=== PATIENT | female | born 1960 | race Caucasian/White ===

== ENCOUNTER → 2017-05-08 09:08 | Outpatient (CLI) | payer MEDICAID, SELFPAY ==
[2017-05-08 10:48] LABS: Anion Gap 7 (5-15); BUN 12 mg/dL (7-18); BUN/Creat Ratio 12.8 RATIO (10-20); Calcium,Total 8.7 mg/dL (8.5-10.1); Chloride 106 mmol/L (98-107); Cholesterol 151 mg/dL (200); Creatinine, Serum 0.94 mg/dL (0.55-1.02); EST Glomerular Filtration Rate 66 mL/min (>60); Est Glom Filt Rate - Afr Amer 80 mL/min (>60); Glucose 89 mg/dL (74-106); High Density Lipoprotein 41 mg/dL; Potassium 3.6 mmol/L (3.5-5.1); Sodium Level 141 mmol/L (136-145); Triglycerides 74 mg/dL; Very Low Density Lipoprotein 15 mg/dL (5-40)
[2017-05-08 11:22] LABS: Vitamin D,25 Hydroxy 22.7 ng/mL (29.95-100.01)
== END ==
PROVIDERS: Family Provider Family Medicine; PCP Family Medicine; Visit Provider Family Medicine
DX: Z00.00 Encounter for general adult medical examination without abnormal findings (principal); I10 Essential (primary) hypertension; E78.5 Hyperlipidemia, unspecified
CPT/HCPCS: 36415; 80048; 80061; 82306

== ENCOUNTER → 2017-05-08 11:53 | Outpatient (CLI) | payer MEDICAID, SELFPAY ==
--- NOTE | 2017-05-08 | LES_PTH ---
PATIENT: COLIN TRUJILLO LOC: [facility] U#:[id number] AGE/SX: 64/F ROOM: RE05/08/[address]: Dr. Shant Suarez MD : 1960 BED: DIS: SPEC #: [id number] RECD: 05/08/17 14:35 STATUS: DHARA JENNIE #: [id number] VERONICA: 05/08/17 00:[address]: Shant Suarez DEPT: SURGICAL PATHOLOGY RECD BY: Ruslan Driscoll Tissues: Skin of arm Procedures: Surgery Specimen Level IV HEADER OPERATION: 4 mm punch biopsy PRE-OP DIAGNOSIS: Left arm neoplasm TISSUE SUBMITTED: 4 mm left arm punch biopsy MICROSCOPIC DIAGNOSIS Left arm lesion, punch biopsy: Solar elastosis. Dermatofibroma Negative for malignancy. SJ:gabriela 05/11/17 COMMENT Case has been reviewed in consultation with Dr. Zuniga who concurs with the above diagnosis. IDC:AM MICROSCOPIC DESCRIPTION Slides are reviewed. GROSS DESCRIPTION Received is one container labeled with the patient's name and not further designated. The specimen consists of a light messina punch biopsy of skin measuring 0.3 x 0.2 x 0.2 cm. The specimen is totally submitted in one cassette. / AM:gabriela 05/08/17 TC:5 CPT: 46641
== END ==
PROVIDERS: Family Provider Family Medicine; PCP Family Medicine; Visit Provider Family Medicine
DX: Z00.00 Encounter for general adult medical examination without abnormal findings (principal); I10 Essential (primary) hypertension; E78.5 Hyperlipidemia, unspecified; D49.89 Neoplasm of unspecified behavior of other specified sites
CPT/HCPCS: 36415; 80048; 80061; 82306; 88305

== ENCOUNTER → 2017-10-26 09:12 | Outpatient (CLI) | payer MEDICAID, SELFPAY ==
[2017-10-26 10:41] LABS: Anion Gap 4 (5-15); BUN 13 mg/dL (7-18); BUN/Creat Ratio 13.1 RATIO (10-20); Calcium,Total 9.1 mg/dL (8.5-10.1); Chloride 109 mmol/L (98-107); Creatinine, Serum 0.99 mg/dL (0.55-1.02); EST Glomerular Filtration Rate 62 mL/min (>60); Est Glom Filt Rate - Afr Amer 75 mL/min (>60); Glucose 104 mg/dL (74-106); Potassium 4.1 mmol/L (3.5-5.1); Sodium Level 141 mmol/L (136-145)
== END ==
PROVIDERS: Family Provider Family Medicine; PCP Family Medicine; Visit Provider Family Medicine
DX: R60.9 Edema, unspecified (principal)
CPT/HCPCS: 36415; 80048

== ENCOUNTER → 2018-02-04 10:01 | Outpatient (CLI) | payer MEDICAID, SELFPAY ==
[2017-12-14 09:20] VITALS: BMI 34.7
[2018-02-04 12:29] LABS: Anion Gap 7 (5-15); BUN 14 mg/dL (7-18); BUN/Creat Ratio 15.1 RATIO (10-20); Calcium,Total 8.8 mg/dL (8.5-10.1); Chloride 108 mmol/L (98-107); Cholesterol 163 mg/dL (200); Creatinine, Serum 0.93 mg/dL (0.55-1.02); EST Glomerular Filtration Rate 67 mL/min (>60); Est Glom Filt Rate - Afr Amer 80 mL/min (>60); Glucose 98 mg/dL (74-106); High Density Lipoprotein 40 mg/dL; Potassium 3.9 mmol/L (3.5-5.1); Sodium Level 142 mmol/L (136-145); Triglycerides 95 mg/dL; Very Low Density Lipoprotein 19 mg/dL (5-40)
[2018-02-04 12:30] LABS: Vitamin D,25 Hydroxy 36.5 ng/mL (29.95-100.01)
== END ==
PROVIDERS: Family Provider Family Medicine; PCP Family Medicine; Visit Provider Family Medicine
DX: I10 Essential (primary) hypertension (principal); E55.9 Vitamin D deficiency, unspecified
CPT/HCPCS: 36415; 80048; 80061; 82306

== ENCOUNTER → 2018-06-30 | Outpatient (CLI) | payer MEDICAID, SELFPAY ==
[2018-06-09 07:57] VITALS: BMI 34.2
--- NOTE | 2018-06-30 08:09 | BI_ITS ---
MAMMOGRAPHY - BILATERAL SCREENING REASON FOR EXAM: Female, 57 years old. Routine annual screening examination. PERTINENT HISTORY: Non-contributory. TECHNIQUE: Digital bilateral breast allie (3D mammographic acquisition) in the CC and MLO projections. 2-D mediolateral oblique (MLO) and craniocaudad (CC) views of both breasts were obtained. CAD: Full Field Digital Mammography with Computer Added Detection was performed. COMPARISON: Comparison is made with prior study December 22, 2016 and October 02, 2015. FINDINGS: Breast Composition: The breasts are heterogeneously dense, which may obscure small masses. There are no dominant masses or suspicious calcifications. Stable small bilateral axillary lymph nodes. No other significant abnormalities are identified. There has been no significant change since the prior study. BI/SCREENING MAMM (CAD), BILAT IMPRESSION: Stable bilateral screening mammogram. Yearly follow-up mammogram recommended. (A) ASSESSMENT CATEGORY: BIRADS Category 2: Benign. A letter regarding these results will be sent to the patient by the facility within 30 days. Approximately 10% of breast cancers are not detected by mammography. A normal mammogram should not delay biopsy of a clinically suspicious abnormality. [id number] Electronically Signed: Jamaal Pat, at 11:05 EDT , Service support ,
== END | disposition home or self-care (01) ==
PROVIDERS: Family Provider Family Medicine; PCP Family Medicine; Referring Provider Family Medicine; Visit Provider Family Medicine
DX: Z12.31 Encounter for screening mammogram for malignant neoplasm of breast (principal)
CPT/HCPCS: 77063; 77067

== ENCOUNTER → 2018-08-05 | Outpatient (CLI) | payer MEDICAID, SELFPAY ==
[2018-06-09 07:57] VITALS: BMI 34.2
[2018-08-05 10:43] LABS: Anion Gap 6 (5-15); BUN 17 mg/dL (7-18); BUN/Creat Ratio 16.2 RATIO (10-20); Calcium,Total 9.3 mg/dL (8.5-10.1); Chloride 109 mmol/L (98-107); Cholesterol 157 mg/dL (200); Creatinine, Serum 1.05 mg/dL (0.55-1.02); EST Glomerular Filtration Rate 58 mL/min (>60); Est Glom Filt Rate - Afr Amer 70 mL/min (>60); Glucose 93 mg/dL (74-106); High Density Lipoprotein 37 mg/dL; Potassium 4.5 mmol/L (3.5-5.1); Sodium Level 142 mmol/L (136-145); Triglycerides 126 mg/dL; Very Low Density Lipoprotein 25 mg/dL (5-40)
== END | disposition home or self-care (01) ==
LOC: MFPLAB 08:56
PROVIDERS: Family Provider Family Medicine; PCP Family Medicine; Referring Provider Family Medicine; Visit Provider Family Medicine
DX: I10 Essential (primary) hypertension (principal)
CPT/HCPCS: 36415; 80048; 80061

== ENCOUNTER 2018-08-15 19:16 | Emergency (ER) | payer MEDICAID, SELFPAY ==
[2018-06-09 07:57] VITALS: BMI 34.2
[2018-08-15 19:17] VITALS: BP 149/83; PULSE 70; RESP 17; TEMP 36.3; O2SAT 95; BMI 34.9
--- NOTE | 2018-08-15 19:40 | RAD_ITS ---
STUDY: X-RAY - RIGHT SHOULDER REASON FOR EXAM: Female, 57 years old. Status post fall TECHNIQUE: 2 view(s) of the shoulder. COMPARISON: None. FINDINGS: Normal glenohumeral articulation. Normal acromioclavicular joint. Normal acromion. Normal humeral head and visualized proximal humerus. The soft tissue structures are unremarkable. Normal visualized pulmonary apex. RAD/Shoulder min 2 Views IMPRESSION: Normal x-ray examination of the shoulder. Electronically Signed: Clinton Brown DO at 20:17 EDT Tel , Service support ,
--- NOTE | 2018-08-15 19:40 | RAD_ITS ---
STUDY: X-RAY - LEFT HAND REASON FOR EXAM: Female, 57 years old. Left hand pain TECHNIQUE: 3 view(s) of the hand. COMPARISON: None. FINDINGS: No acute fracture or dislocation. Age-related degenerative changes RAD/Hand Min 3 Views IMPRESSION: As above Electronically Signed: Clinton Brown DO at 20:16 EDT Tel , Service support ,
--- NOTE | 2018-08-15 19:44 | ED.DCSUM_ITS ---
History of Present Illness Chief Complaint: Upper Extremity Injury Narrative: Patient presenting for evaluation secondary to a fall. Patient reports that on she was involved in a mechanical fall where she tripped over a dog leash. Patient states that she tried to catch herself with her left hand, and then she fell on her right knee and right shoulder. Patient reports that she has a mild amount of pain and bruising in her right knee, but mainly is complaining of pain in her left thumb and right shoulder. Patient states that the pain in the left thumb is worse with palpation and movement is sharp and is mild. No limited range of motion secondary to the pain. Patient's right shoulder pain seems to radiate all the way down her arm and is worsened with range of motion and specifically with reaching over her head. She denies any neck pain. She denies any paresthesias or weakness. Pain is described occasionally as being sharp and burning. Patient is on aspirin, denies hitting her head or loss of consciousness. Review of systems otherwise negative. Past Medical History - Allergies and Home Meds Allergies/Adverse Reactions: Allergies bupropion [From Wellbutrin] Adverse Reaction (Verified 08/15/18 19:21) Other Primary Care Physician: Shant Suarez MD [Primary Care Provider] - Surgical History: - - BLTL. Smoking Status: Heavy Smoker (>10/day) - Family History Maternal Family History: Family History (Last Reviewed 06/09/18 @ 09:08 by Yadiel Crouch MD) Mother Hypertension Father Hypertension Brother Hypertension Sister Hypertension Family History: Reports: Hypertension Paternal Family History: Family History (Last Reviewed 06/09/18 @ 09:08 by Yadiel Crouch MD) Mother Hypertension Father Hypertension Brother Hypertension Sister Hypertension Family History: Reports: Hypertension Review of Systems All systems negative except as indicated Musculoskeletal: Reports: Extremity Pain. Denies: Neck pain, Back pain Skin: Denies: Rash Neurological: Denies: Headache, Weakness, Parasthesia Physical Exam Vital Signs/Narrative: Vital Signs Temp Pulse Resp BP Pulse Ox 08/15/18 19:17 97.4 F L 70 17 149/83 H 95 Inital Vital Signs reviewed: Yes General: Well nourished, Well developed, - - Airway is patent, breath sounds equal bilateral, central peripheral pulses 2+ and symmetric, GCS 15 out of 15 Head: Normocephalic, Atraumatic Eyes: Perrl, EOMI ENT: TM's clear, No hemotympanum or drainage, No trauma Neck: Nontender, Full ROM, - - No pain with axial loading of the neck Cardiovascular: Regular rate, Regular rhythm, No murmurs, - - 2+ radial pulses bilaterally symmetric Respiratory: No distress, CTA bilaterally, Chest nontender Abdomen: Soft, Nontender, Nondistended, Normal bowel sounds Back: Nontender, - - No step-offs noted Extremeties: Extremity exam shows some pain over the proximal phalanx of the patient's left thumb. There is no ulnar collateral ligament laxity or pain noted. Normal range of motion of the thumb. No pain in the anatomical snuffbox. Normal capillary refill. Right extremity exam shows some pain with palpation of the lateral portion of the patient's shoulder. Patient has pain wi th passive range of motion of the shoulder, but no crepitus. No evidence of weakness of the rotator cuff. Normal sensation normal pulses distally. No skin changes. Skin: - - Mild bruising of the right knee Neurological: Alert, Oriented x3, Cranial nerves II-XII grossly intact, Normal Strength, Normal Sensation Psychological: Normal affect Diagnostic/Tx/Re-eval - Medical Decision Making Patient presented secondary to fall. Primary and secondary surveys noted pain of the left thumb and right shoulder. Thumb exam did not show any localization of pain at the anatomical snuffbox and no laxity of the ulnar collateral ligament. X-rays were found to be negative. Shoulder exam shows no laxity of the patient's rotator cuff, and x-rays were negative. Patient likely has some bruising and strain type pathology but nothing that would require orthopedic follow-up. She was recommended conservative treatment, and follow-up with primary care as needed. ED Disposition - Plan for ED Patient: Disposition: Home or Assisted Living Diagnosis: Contusion of left thumb, Contusion of right shoulder Instructions: ED Sprain Shoulder Referrals: Shant Suarze MD [Primary Care Provider] - As Needed
[2018-08-15 21:03] VITALS: PULSE 82; RESP 18; O2SAT 95
== END 2018-08-15 21:03 | disposition home or self-care (01) ==
PROVIDERS: Emergency Provider Emergency Medicine; Family Provider Family Medicine; PCP Family Medicine
DX: S40.011A Contusion of right shoulder, initial encounter (principal); S60.012A Contusion of left thumb without damage to nail, initial encounter; F17.200 Nicotine dependence, unspecified, uncomplicated; W01.0XXA Fall on same level from slipping, tripping and stumbling without subsequent striking against object, initial encounter; Y93.K1 Activity, walking an animal; Y92.89 Other specified places as the place of occurrence of the external cause; Y99.8 Other external cause status
CPT/HCPCS: 73030; 73130; 99282

== ENCOUNTER 2018-10-29 08:00 | Outpatient (RCR) | payer MEDICAID, SELFPAY ==
--- NOTE | 2018-10-06 08:49 | HP.PTEVAL ---
Patient's Visit Information COLIN TRUJILLO is a 57 year old F referred to Physical Therapy by Harpreet Chauhan with a diagnosis of R shoulder sprain. Date of Evaluation: 10/06/18 Physical Therapist: Rajeev Rubalcava, PT, ATC - Visit Plan Frequency: 2-3x /Week Duration: 4 Weeks Plan: R shoulder stretching and strengthening (rot cuff), scapular stab ex's, UBE, and HEP - Subjective Findings: Pt reports she fell about 2 months ago and injured her R shoulder. Pt reports she has been seeing a chiropractor for approximately 4-5 weeks which has helped some, but she is still in pain. Pt reports she has to have PT prior to getting an MRI so she chose to come here today. No PMHx of R shoulder pain. Pt reports occasionally her pain extends all the way down to her R forearm and hand. No tingling or numbness in R UE. Pt reports significant sleep difficulty secondary to pain. Pt wakes up 4-5 times a night secondary to pain. Pt is R hand dominant. Pt reports reaching overhead and behind her back results in great pain. 5/10 pain at rest, 9/10 pain at worst. - Pain R shoulder Pain Intensity (Out of 10): 5 Pain Intensity Range: 9 - Objective Neuro: B UE sensation is WNL to light touch. B bicepital reflex= 2/3. Palpation: Pt is sore on the posterior and lateral aspects of R shoulder. No obvious deformity this date. ROM: L shoudler flex= 170, abd= 160, ER= 45, IR WNL; R shoulder flex= 115, abd= 110, ER= 55, IR minimally limited. MMT: L shoulder is 5/5 throughout. R shoulder is 4-/5 throughout and very painful. Special testing: Pos empty can test, pos HK test - Goals Goal 1:: Decrease R shoulder pain x 50% to aid with sleep Goal Time Frame: 4-6 Weeks Goal 2:: Increase R shoulder strength by one grade to aid with IADL's Goal Time Frame: 4-6 Weeks Goal 3:: Increase R shoulder flex and abd ROM x 30 degrees to aid with overhead activity Goal Time Frame: 4-6 Weeks Goal 4:: I with HEP Goal Time Frame: 4-6 Weeks - Rehabilitation Potential Physical Therapy Diagnosis: Pt has R shoulder pain, weakness, and limited ROM secondary to R rotator cuff syndrome. Rehabilitation Potential: Good - Anticipated Interventions Patient/Client Instruction: Educate patient on: Condition, Plan of Care For the Purpose of:: To improve self management Therapeutic Exercise to Include: Strength training, Endurance training, Active ROM, Scapular Strength/Stabilization For the Purpose of:: To decrease pain, To increase ROM, To improve muscle performance and motor function Cryotherapy (ice pack, ice massage): Yes For the Purpose of:: To decrease pain Thank you for the opportunity to evaluate your patient. For Medicare and Medicare HMO plans, please review the plan of care and approve it. It will need to be FAXED BACK to us at [phone] for Medicare purposes. For Medicare only, by signing this I certify the plan of care. Please let me know if there are questions or concerns regarding this plan of care. Physician Signature: Date:
--- NOTE | 2018-12-28 10:48 | HP.PT.NRP ---
HP - Discharge Summary (1) - Patient Information COLIN TRUJILLO was seen in my office for initial evaluation on 10/06/18. The following Plan of Care was established for this patient: Initial Frequency: 2-3x /Week Initial Duration: 4 Weeks - Anticipated Interventions Patient/Client Instruction: Educate patient on: Condition, Plan of Care For the Purpose of:: To improve self management Therapeutic Exercise to Include: Strength training, Endurance training, Active ROM, Scapular Strength/Stabilization For the Purpose of:: To decrease pain, To increase ROM, To improve muscle performance and motor function Cryotherapy (ice pack, ice massage): Yes For the Purpose of:: To decrease pain This patient was last seen in our office . Pertinent comments regarding their Physical therapy will appear below: Pt was treated for 6 PT visits through the date of 10/29/18. Pt has not returned through todays date and is discontinued at this time. At this point I will be discontinuing this patient from physical therapy. I would be happy to see this patient again in the future if found appropriate by the physician. Thank you! Rajeev Rubalcava, PT, ATC
== END 2018-10-29 19:00 | disposition home or self-care (01) ==
LOC: PT 08:00
PROVIDERS: Family Provider Family Medicine; PCP Family Medicine; Referring Provider Chiropractor; Visit Provider Chiropractor
DX: S43.491A Other sprain of right shoulder joint, initial encounter (principal)
CPT/HCPCS: 97110; 97161

== ENCOUNTER → 2018-12-01 | Outpatient (CLI) | payer MEDICAID, SELFPAY ==
[2018-10-08 08:51] VITALS: BMI 35.2
== END | disposition home or self-care (01) ==
PROVIDERS: Family Provider Family Medicine; PCP Family Medicine; Referring Provider Nurse Practitioner Family; Visit Provider Nurse Practitioner Family
DX: R30.0 Dysuria (principal)
CPT/HCPCS: 87077; 87086; 87088; 87186

== ENCOUNTER → 2019-09-09 | Outpatient (CLI) | payer MEDICAID, SELFPAY ==
[2019-09-06 10:59] VITALS: BMI 33.3
[2019-09-09 10:19] LABS: AST(SGOT) 9 U/L (15-37); Alanine Aminotransfer ALT/SGPT 28 U/L (13-56); Albumin, Serum 3.6 g/dL (3.2-5.0); Alkaline Phosphatase 101 U/L (45-117); Bilirubin, Direct 0.13 mg/dL (0.00-0.30); Cholesterol 156 mg/dL (200); Globulin 3.9 g/dL (2.2-4.2); High Density Lipoprotein 38 mg/dL; Protein, Total 7.5 g/dL (6.4-8.2); Triglycerides 97 mg/dL; Very Low Density Lipoprotein 19 mg/dL (5-40)
== END | disposition home or self-care (01) ==
LOC: MFPLAB 08:03
PROVIDERS: PCP Family Medicine; Referring Provider Family Medicine; Visit Provider Internal Medicine Cardiovascular Disease
DX: E78.00 Pure hypercholesterolemia, unspecified (principal)
CPT/HCPCS: 36415; 80061; 80076

== ENCOUNTER → 2019-09-30 | Outpatient (CLI) | payer MEDICAID, SELFPAY ==
[2019-09-06 10:59] VITALS: BMI 33.3
[2019-09-30 10:21] LABS: Anion Gap 2 (5-15); BUN 16 mg/dL (7-18); BUN/Creat Ratio 15.4 RATIO (10-20); Calcium,Total 9.2 mg/dL (8.5-10.1); Chloride 104 mmol/L (98-107); Creatinine, Serum 1.04 mg/dL (0.55-1.02); EST Glomerular Filtration Rate 58 mL/min (>60); Est Glom Filt Rate - Afr Amer 70 mL/min (>60); Glucose 106 mg/dL (74-106); Potassium 3.8 mmol/L (3.5-5.1); Sodium Level 139 mmol/L (136-145)
== END | disposition home or self-care (01) ==
LOC: MFPLAB 09:04
PROVIDERS: PCP Family Medicine; Referring Provider Family Medicine; Visit Provider Family Medicine
DX: I10 Essential (primary) hypertension (principal)
CPT/HCPCS: 36415; 80048

== ENCOUNTER → 2020-02-02 | Outpatient (CLI) | payer MEDICAID, SELFPAY ==
[2019-09-06 10:59] VITALS: BMI 33.3
--- NOTE | 2020-02-02 10:06 | BI_ITS ---
MAMMOGRAPHY - BILATERAL SCREENING REASON FOR EXAM: Female, 59 years old. Routine annual screening examination. PERTINENT HISTORY: Non-contributory. TECHNIQUE: Digital bilateral breast marisela (3D mammographic acquisition) in the CC and MLO projections. 2-D mediolateral oblique (MLO) and craniocaudad (CC) views of both breasts were obtained. CAD: Full Field Digital Mammography with Computer Added Detection was performed. COMPARISON: Comparison is made with prior study dated 06/30/2018 and 12/22/2016. FINDINGS: Breast Composition: The breasts are heterogeneously dense, which may obscure small masses. There are no dominant masses or suspicious calcifications. Stable benign appearing bilateral axillary lymph nodes. No other significant abnormalities are identified. There has been no significant change since the prior study. BI/SCREEN MAMM (CAD) W/MARISELA BILAT IMPRESSION: Stable bilateral screening mammogram. Yearly follow-up mammogram recommended. (A) ASSESSMENT CATEGORY: BIRADS Category 2: Benign. A letter regarding these results will be sent to the patient by the facility within 30 days. Approximately 10% of breast cancers are not detected by mammography. A normal mammogram should not delay biopsy of a clinically suspicious abnormality. [id number] Electronically Signed: Jamaal Pat, at 10:43 EST , Service support ,
== END | disposition home or self-care (01) ==
LOC: OPBI 10:05
PROVIDERS: PCP Family Medicine; Referring Provider Family Medicine; Visit Provider Family Medicine
DX: Z12.31 Encounter for screening mammogram for malignant neoplasm of breast (principal)
CPT/HCPCS: 77063; 77067

== ENCOUNTER → 2020-09-28 | Outpatient (CLI) | payer MEDICAID, SELFPAY ==
[2020-09-10 08:29] VITALS: BMI 33.3
--- NOTE | 2020-09-28 | IMM_PTH ---
PATIENT: COLIN TRUJILLO LOC: [facility] U#:[id number] AGE/SX: 59/F ROOM: RE09/28/[address]: Dr. Anca Zabala MD : 1960 BED: DIS: 09/28/2020 SPEC #: [id number] RECD: 10/02/20 10:16 STATUS: DHARA REQ #: [id number] VERONICA: 09/28/20 00:[address]: Anca Zabala DEPT: IMMUNOHISTOCHEMISTRY RECD BY: Mili Escobar Tissues: Skin of hand and finger, NOS Procedures: SMA (add) CD10 (add) CD34 (add) MACRO (add) Vimentin (add) Pankeratin (initial) MELAN-A (add) P40 (add) S-100 (add) PHYSICIAN & INSTITUTION [place] [address] SPECIMEN INFORMATION: Tissue Source: Right dorsum of hand Clinical Info: Growing lesion Specimen Number: [id number] CPT code: 24796, 38194 x8 METHODOLOGY: Deparaffinized sections of prefer/formalin-fixed tissue or PAP/DQ stained slides are incubated with monoclonal/polyclonal antibodies/oligonucleotide probes. Localization is made via biotin free immunoperoxidase method. Appropriate controls are performed and reacted as expected. Results on target cell population are indicated in the following table: RESULTS: ANTIBODY / CLONE RESULT AE1-3 (AE1/AE3/PCK26) negative CD10 (56C6) positive Vimentin (V9) positive CD34 (QBEnd-10) negative Actin (1A4) negative Melan A (A103) negative S-100 (4C4.9) negative P40 (BC28) negative Macro (HAM-56) negative These tests were developed and their performance characteristics determined by [facility]. They may not have been cleared or approved by the U.S. Food and Drug Administration. The FDA has determined that such clearance or approval is not necessary. The above immunohistochemical/dualISH markers are ordered and reviewed by the Pathologist. INTERPRETATION: Right dorsum of hand, excisional biopsy: Consistent with dermatofibroma. AM:gabriela 10/03/2020
--- NOTE | 2020-09-28 10:10 | LES_PTH ---
PATIENT: COLIN TRUJILLO LOC: [facility] U#:[id number] AGE/SX: 59/F ROOM: RE09/28/[address]: Dr. Anca Zabala MD : 1960 BED: DIS: 09/28/2020 SPEC #: [id number] RECD: 09/28/20 14:52 STATUS: DHARA SCHNEIDER #: [id number] VERONICA: 09/28/20 10:[address]: Anca Zabala DEPT: SURGICAL PATHOLOGY RECD BY: Linda Murphy Tissues: Skin of hand and finger, NOS Procedures: Trichrome (control) Special Stain Group II Surgery Specimen Level IV HEADER OPERATION: Elliptical excision PRE-OP DIAGNOSIS: Growing lesion TISSUE SUBMITTED: Right dorsum of hand MICROSCOPIC DIAGNOSIS Lesion of right dorsum of hand, biopsy: Consistent with dermatofibroma. See comment. AM:gabriela 10/02/2020 COMMENT Immunohistochemistry ([id number]) supports the above diagnosis. Trichrome stain with matched control was used in the evaluation of this case. Case has been reviewed in consultation with Dr. Conit who concurs with the above diagnosis. IDC:SJ MICROSCOPIC DESCRIPTION Slides are reviewed. GROSS DESCRIPTION Received is one container labeled with the patient's name and not further designated. The specimen consists of a messina skin ellipse measuring 0.5 x 0.3 cm and up to 0.2 cm in thickness. The specimen is inked and submitted entirely in one cassette. It will be sectioned at the time of embedding. / JANET:gabriela 10/01/20 TC:5 CPT: 00399, 26293
== END | disposition home or self-care (01) ==
LOC: LABSPEC 15:12
PROVIDERS: PCP Family Medicine; Referring Provider Family Medicine; Visit Provider Family Medicine
DX: L98.9 Disorder of the skin and subcutaneous tissue, unspecified (principal)
CPT/HCPCS: 88305; 88313; 88341; 88342

== ENCOUNTER → 2020-10-18 06:51 | Outpatient (CLI) | payer MEDICAID, SELFPAY ==
[2020-09-10 08:29] VITALS: BMI 33.3
--- NOTE | 2020-10-18 16:04 | STRESSREP ---
Stress Test Report Pharmacologic myocardial perfusion stress test. 59-year-old lady with a history of coronary artery disease. Stress protocol: Resting EKG demonstrates normal sinus rhythm with a rate of 77 bpm normal intervals are noted. Resting blood pressure is 134/82 mmHg. 0.4 mg of regadenoson was infused. Protocol followed by intravenous saline flush injection continuous EKG monitoring was performed. Heart rate attained was 106 bpm which was 65% of maximum predicted heart rate the maximum workload was 1 metabolic equivalent. At rest there were no ST or T wave changes noted to suggest abnormal flow reserve and at peak infusion nonspecific ST changes were noted with did not meet the criteria for ischemia. Myocardial perfusion protocol. 12.6 mCi of technetium 99m sestamibi was injected at rest. 0.4 mg of regadenoson was infused per usual protocol. At peak infusion 42.4 mCi of technetium 99m sestamibi was injected stress images were obtained stress and rest images were reconstructed and compared in the short axis vertical long and horizontal long axis. Gated images were also obtained per Perfusion SPECT analysis: Review of the stress images demonstrate normal uptake of tracer noted in all areas of myocardium except for small portion of the basal inferolateral wall. The resting images demonstrate a similar pattern. The basal inferolateral wall defect suggest an area of infarct here. No ischemia is noted. Gated SPECT analysis: The gated ejection fraction is 51%. Conclusion: Myocardial perfusion stress test with evidence of basal inferolateral infarct. Preserved ejection fraction.
== END ==
PROVIDERS: PCP Family Medicine; Referring Provider Nurse Practitioner Family; Visit Provider Nurse Practitioner Family
DX: I25.10 Atherosclerotic heart disease of native coronary artery without angina pectoris (principal); R06.02 Shortness of breath; Z95.5 Presence of coronary angioplasty implant and graft; I10 Essential (primary) hypertension; F17.210 Nicotine dependence, cigarettes, uncomplicated; R06.00 Dyspnea, unspecified
CPT/HCPCS: 78452; 93017; A9500; A4216; J2785

== ENCOUNTER → 2020-10-23 | Outpatient (CLI) | payer MEDICAID, SELFPAY | END | disposition home or self-care (01) | LOC: LABSPEC 16:21 | PROVIDERS: PCP Family Medicine; Referring Provider Otolaryngology Otolaryngology/Facial Plastic Surgery; Visit Provider Otolaryngology Otolaryngology/Facial Plastic Surgery | DX: H92.10 Otorrhea, unspecified ear (principal) | CPT/HCPCS: 87070; 87075; 87077; 87186; 87205 ==

== ENCOUNTER 2021-03-13 10:36 | Outpatient (CLI) | payer MEDICAID, SELFPAY ==
--- NOTE | 2021-03-13 10:41 | BI_ITS ---
MAMMOGRAPHY - BILATERAL SCREENING REASON FOR EXAM: Female, 60 years old. Routine annual screening examination. PERTINENT HISTORY: Non-contributory. TECHNIQUE: Digital bilateral breast marisela (3D mammographic acquisition) in the CC and MLO projections. 2-D mediolateral oblique (MLO) and craniocaudad (CC) views of both breasts were obtained. CAD: Full Field Digital Mammography with Computer Added Detection was performed. COMPARISON: Comparison is made with prior study dated 02/11/2029 06/30/2018. FINDINGS: Breast Composition: The breasts are heterogeneously dense, which may obscure small masses. Asymmetrical density in the upper lateral aspect of the right breast. Correlation with ultrasound is recommended. No other significant abnormalities are identified. BI/SCRN MAMM (CAD)W/MARISELA BILAT IMPRESSION: Asymmetrical density in the upper lateral aspect of the right breast. Correlation with ultrasound is recommended. ASSESSMENT CATEGORY: BIRADS Category 0: Incomplete. Need additional imaging evaluation. A letter regarding these results will be sent to the patient by the facility within 30 days. Approximately 10% of breast cancers are not detected by mammography. A normal mammogram should not delay biopsy of a clinically suspicious abnormality. [id number] Electronically Signed: Jamaal Pat MD at 12:21 EST ,
== END 2021-03-13 23:59 | disposition short-term general hospital (02) ==
LOC: OPBI 10:37
PROVIDERS: PCP Family Medicine; Referring Provider Family Medicine; Visit Provider Family Medicine
DX: Z12.31 Encounter for screening mammogram for malignant neoplasm of breast (principal)
CPT/HCPCS: 77063; 77067

== ENCOUNTER 2021-03-14 09:51 | Outpatient (CLI) | payer MEDICAID, SELFPAY ==
--- NOTE | 2021-03-14 09:53 | US_ITS ---
STUDY: ULTRASOUND BREAST - RIGHT REASON FOR EXAM: Female, 60 years old. Abnormal screening mammogram. TECHNIQUE: Axial and longitudinal images of the RIGHT breast were performed with a high resolution ultrasound transducer. # OF IMAGES: 31 COMPARISON: Comparison is made with prior mammogram dated 03/13/2021. FINDINGS: RIGHT Breast: There is a 5 mm x 6 mm x 5 mm hypoechoic solid nodule at the 10 o''clock position of the breast at 2 cm from nipple. A biopsy is recommended. There is a 5 mm x 6 mm x 5 mm hypoechoic solid nodule at the 9 o''clock position of the breast at 5 cm from nipple. This is not a typical cyst. A biopsy recommended. US/Breast Limited Unilateral IMPRESSION: Subcentimeter hypoechoic solid nodules at the 9 and 10 o''clock position of the right breast as described. Biopsy recommended. ASSESSMENT CATEGORY: BIRADS Category 4: Suspicious - Biopsy Should Be Considered. A letter regarding these results will be sent to the patient by the facility within 30 days. Electronically Signed: Jamaal Pat MD at 10:54 EST ,
== END 2021-03-14 23:59 | disposition short-term general hospital (02) ==
LOC: OPUS 09:51
PROVIDERS: PCP Family Medicine; Referring Provider Family Medicine; Visit Provider Family Medicine
DX: R92.8 Other abnormal and inconclusive findings on diagnostic imaging of breast (principal)
CPT/HCPCS: 76642

== ENCOUNTER 2021-03-25 11:45 | Outpatient (CLI) | payer MEDICAID, SELFPAY ==
--- NOTE | 2021-03-25 11:49 | US_ITS ---
STUDY: ULTRASOUND BREAST - RIGHT REASON FOR EXAM: Female, 60 years old. Abnormal screening mammogram. TECHNIQUE: Axial and longitudinal images of the RIGHT breast were performed with a high resolution ultrasound transducer. # OF IMAGES: 31 COMPARISON: Comparison is made with prior mammogram dated 03/13/2021. FINDINGS: RIGHT Breast: There is a 5 mm x 6 mm x 5 mm hypoechoic solid nodule at the 10 o''clock position of the breast at 2 cm from nipple. A biopsy is recommended. There is a 5 mm x 6 mm x 5 mm hypoechoic solid nodule at the 9 o''clock position of the breast at 5 cm from nipple. This is not a typical cyst. A biopsy recommended. US/US Breast Biopsy 1st Lesion IMPRESSION: Subcentimeter hypoechoic solid nodules at the 9 and 10 o''clock position of the right breast as described. Biopsy recommended. ASSESSMENT CATEGORY: BIRADS Category 4: Suspicious - Biopsy Should Be Considered. A letter regarding these results will be sent to the patient by the facility within 30 days. Electronically Signed: Jamaal Pat MD at 10:54 EST ,
--- NOTE | 2021-03-25 12:00 | OP.PCM_ITS ---
Report of Operation Date of Procedure: 03/25/21 Pre-Operative Diagnosis: Right breast mass x2 Post-Operative Diagnosis: Same Surgery/Procedure Performed:: Right ultrasound guided breast biopsy x2 Surgeon: Janey Razo Type of Anesthesia: Local Specimen's removed: 1. Right breast 9:00 5 cm from the nipple, 2. Right breast 10:00 2 cm from the nipple Estimated Blood Loss (mL): Minimal Description of Procedure: Procedure: ultrasound-guided core biopsy Indications: 60 year-old female with 2 hypoechoic nodules at 9:00 5 cm from nipp le and 10:00 2 cm from the nipple on the right breast. Risk benefits were discussed the patient and she elected to proceed with ultrasound guided core biopsy with clip placement Description of procedure: Patient was brought into the ultrasound room in the right breast was marked. A timeout was completed verifying correct patient, procedure, site, specially, prior to beginning procedure. The right breast was prepped and draped in usual sterile fashion and using local anesthesia was obtained with 1% lidocaine with epi. Each lesion was done similarly. First, 9:00 2 cm from nipple lesion was located with the ultrasound. Small incision was made with 11 blade to introduced the BARD MaxCore through the skin. Under ultrasound guidance multiple core samples were obtained using then 14 grades BARD MaxCore; however did not seem to get a good sample setting keep going over the lesion did change to the mammotome. Additional specimens were collected and sent in formalin for pathology. The mammotome was also used for the 10:00 2 cm from the nipple lesion. The mammotome mammostar clip barbell for the 9:00 5 cm from the nipple, Bard dual ultra ribbon clip was used for the 10:00 2 cm from the nipple were then deployed into the biopsy cavity under ultrasound guidance and a picture was taken. Upon completion procedure hemostasis was obtained and a Steri-Strip and OpSite were placed. Patient was then taken to the mammography suite for clip verification. The clip was verified. The patient tolerated the procedure well and was discharged from the breast imaging department good condition. complications: none Complications none
--- NOTE | 2021-03-25 12:30 | BRBX_PTH ---
PATIENT: COLIN TRUJILLO LOC: [facility] U#:[id number] AGE/SX: 60/F ROOM: RE03/25/[address]: Dr. Janey Razo MD : 1960 BED: DIS: 03/25/2021 SPEC #: [id number] RECD: 03/25/21 13:10 STATUS: DHARA REIrene #: [id number] VERONICA: 03/25/21 12:[address]: Janey Razo DEPT: SURGICAL PATHOLOGY RECD BY: Rama Cartwright ENTERED: 03/26/21 11:04 SP TYPE: BREAST BX OTHR DR: Dr. Anca Zabala MD Tissues: A - Right breast, NOS B - Right breast, NOS Procedures: Surgery Specimen Level IV HEADER OPERATION: Right breast biopsy PRE-OP DIAGNOSIS: Right breast TISSUE SUBMITTED: A - Right breast 9 o?clock, 5 cm from nipple, B - Right breast 10 o?clock, 2 cm from nipple ISCHEMIC TIME: 1 minute FIXATION TIME: 7 hours MICROSCOPIC DIAGNOSIS A. Right breast, 9 o?clock, 5 cm from nipple, core biopsy: Focal adenosis and intraductal hyperplasia without atypia. Focal microcalcification. Negative for malignancy. See comment. B. Right breast, 10 o?clock, 2 cm from nipple, core biopsy: Fragments of benign breast tissue with focal dense fibrosis and minimal intraductal hyperplasia without atypia. Negative for malignancy. See comment. SJ:gabriela 03/27/2021 COMMENT A & B. Correlation with clinical, radiologic findings and appropriate follow up are necessary. MICROSCOPIC DESCRIPTION Slides are reviewed. GROSS DESCRIPTION A - Received in fixative is one container labeled with the patient's name and designated right breast 9 o?clock, 5 cm from nipple. The specimen consists of multiple elongated fragments of messina-yellow fibroadipose tissue that in aggregate measure 2.5 x 1.5 x 0.1 cm. The entire specimen is submitted in one cassette. B - Received in fixative is one container labeled with the patient's name and designated right breast 10 o?clock, 2 cm from nipple. The specimen consists of multiple elongated fragments of messina-yellow fibroadipose tissue that in aggregate measure 2 x 1 x 0.1 cm. The entire specimen is submitted in one cassette. / JANET:gabriela 03/26/2021 TC:5 CPT: 86699 x2
== END 2021-03-25 23:59 | disposition short-term general hospital (02) ==
LOC: OPUS 11:46
PROVIDERS: PCP Family Medicine; Referring Provider Surgery; Visit Provider Surgery
DX: N60.21 Fibroadenosis of right breast (principal); N60.31 Fibrosclerosis of right breast
CPT/HCPCS: 19083; 19084; 88305

== ENCOUNTER 2021-06-11 11:07 | Outpatient (CLI) | payer MEDICAID, SELFPAY ==
--- NOTE | 2021-06-11 11:15 | RAD_ITS ---
STUDY: XR Abdomen 1 View 06/11/2021 11:17 AM REASON FOR EXAM: Female, 60 years old. ABDOMINAL PAIN POSSIBLE KIDNEY STONE TECHNIQUE: XR Abdomen 1 View COMPARISON: None FINDINGS: Normal visualized lung bases. There is an unremarkable bowel gas pattern. There is no demonstrated free abdominal air. The visualized liver, spleen and kidneys are grossly normal in size and morphology. Normal soft tissue structures. There are diffuse degenerative changes of the visualized lumbar spine. RAD/Abdomen Single View IMPRESSION: There are no acute findings. Electronically Signed: Rajeev Flowers MD at 18:18 EDT ,
== END 2021-06-11 23:59 | disposition home or self-care (01) ==
LOC: MTRAD 11:08
PROVIDERS: PCP Family Medicine; Referring Provider Family Medicine; Visit Provider Family Medicine
DX: R10.9 Unspecified abdominal pain (principal)
CPT/HCPCS: 74018

== ENCOUNTER → 2021-07-01 | Outpatient (CLI) | payer MEDICAID, SELFPAY ==
--- NOTE | 2021-07-01 09:51 | US_ITS ---
STUDY: ULTRASOUND BREAST - RIGHT REASON FOR EXAM: Female, 60 years old. 3 month follow-up for right breast biopsies. TECHNIQUE: Axial and longitudinal images of the RIGHT breast were performed with a high resolution ultrasound transducer. # OF IMAGES: 9 COMPARISON: Comparison is made with prior sonogram dated 03/14/2021. FINDINGS: RIGHT Breast: This is a 4 mm x 6 mm x 3 mm well-defined hypoechoic solid nodule at the 10 o''clock position of the breast at 2 cm from nipple. There is also evidence of a 3 mm x 3 mm x 2 mm hypoechoic well-defined nodule at the 9 o''clock position of the breast at 5 cm from nipple. US/Breast Complete Unilateral IMPRESSION: Stable examination. ASSESSMENT CATEGORY: Stable examination. Electronically Signed: Jamaal Pat MD at 14:01 EDT ,
== END | disposition home or self-care (01) ==
LOC: OPUS 09:49
PROVIDERS: PCP Family Medicine; Referring Provider Surgery; Visit Provider Surgery
DX: N63.10 Unspecified lump in the right breast, unspecified quadrant (principal)
CPT/HCPCS: 76641

== ENCOUNTER → 2021-09-12 | Outpatient (CLI) | payer MEDICAID, SELFPAY ==
[2021-09-12 11:56] LABS: AST(SGOT) 12 U/L (15-37); Alanine Aminotransfer ALT/SGPT 28 U/L (13-56); Albumin, Serum 3.6 g/dL (3.2-5.0); Alkaline Phosphatase 91 U/L (45-117); Bilirubin, Direct 0.11 mg/dL (0.00-0.30); Cholesterol 157 mg/dL (200); Globulin 4.5 g/dL (2.2-4.2); High Density Lipoprotein 38 mg/dL; Protein, Total 8.1 g/dL (6.4-8.2); Triglycerides 98 mg/dL; Very Low Density Lipoprotein 20 mg/dL (5-40)
== END | disposition home or self-care (01) ==
LOC: LAB 09:41
PROVIDERS: PCP Family Medicine; Visit Provider Internal Medicine Cardiovascular Disease
DX: E78.00 Pure hypercholesterolemia, unspecified (principal)
CPT/HCPCS: 36415; 80061; 80076

== ENCOUNTER → 2021-09-27 | Outpatient (CLI) | payer MEDICAID, SELFPAY ==
[2021-09-27 15:11] LABS: Absolute Lymphocyte Count 2.22 X10^3/uL (0.83-4.51); Absolute Neutrophil Count 5.5 X10^3/uL (2.0-7.7); Basophil# 0.05 X10^3/uL; Basophil% 0.6 % (0-1); Eosinophils% 2.3 % (0-5); Hematocrit 41.5 % (37-47); Lymphocyte # 2.22 X10^3/ul (0.83-4.51); Lymphocyte % 25.7 % (19-41); Mean Corp Hgb Conc 33.7 g/dL (32-36); Mean Platelet Vol. 10.8 fl (6.2-12.0); Monocyte# 0.63 X10^3/uL; Monocyte% 7.3 % (0-10); NRBC Flagged by Analyzer 0 % (0-5); Neutrophil # 5.51 X10^3/uL (2.7-7.7); Neutrophil % 63.8 % (47-70); Platelet Count 296 K/mm3 (150-450); RBC Distribution Width CV 13.2 % (11.6-14.6); RBC Distribution Width SD 46.3 fl (35.1-43.9); Red Blood Count 4.37 M/mm3 (4.2-5.4); White Blood Count 8.6 K/mm3 (4.4-11.0)
[2021-09-27 15:19] LABS: International Normalized Ratio 0.9; Prothrombin Time (Protime)PT. 12.3 SECONDS (11.7-14.9)
[2021-09-27 15:20] LABS: Partial Thromboplast Time 26.9 Seconds (24.1-36.2)
[2021-09-27 15:29] LABS: Anion Gap 2 (5-15); BUN 13 mg/dL (7-18); BUN/Creat Ratio 12.6 RATIO (10-20); Calcium,Total 9.4 mg/dL (8.5-10.1); Chloride 106 mmol/L (98-107); Creatinine, Serum 1.03 mg/dL (0.55-1.02); EST Glomerular Filtration Rate 58 mL/min (>60); Est Glom Filt Rate - Afr Amer 71 mL/min (>60); Glucose 101 mg/dL (74-106); LDH 165 U/L (84-246); Potassium 3.3 mmol/L (3.5-5.1); Prealbumin 30.1 mg/dL (20.0-40.0); Sodium Level 140 mmol/L (136-145)
== END | disposition home or self-care (01) ==
LOC: MTLAB 11:32
PROVIDERS: PCP Family Medicine; Referring Provider Family Medicine; Visit Provider Family Medicine
DX: T14.8XXA Other injury of unspecified body region, initial encounter (principal); R63.4 Abnormal weight loss
CPT/HCPCS: 36415; 80048; 83615; 84134; 85025; 85610; 85730

== ENCOUNTER → 2021-10-08 | Outpatient (CLI) | payer MEDICAID, SELFPAY ==
--- NOTE | 2021-10-08 07:18 | CT_ITS ---
EXAM: CT CHEST, LUNG CANCER SCREENING WITHOUT INTRAVENOUS CONTRAST CLINICAL INDICATION: LUNG CANCER SCREENING TECHNIQUE: Helically acquired images were obtained of the chest without intravenous contrast using low dose (LDCT) lung cancer screening protocol. This CT exam was performed using one or more of the following dose reduction techniques: automated exposure control, adjustment of the mA and/or kV according to patient size, and/or use of iterative reconstruction technique. This report was created using [employer] report generation technology. COMPARISON: None. FINDINGS: LUNGS AND PLEURAL SPACES: There are small emphysematous bulla in the lung apices are stable. There is minimal scarring at the lung bases. No mass. No pleural effusion or thickening. No pneumothorax. HEART: Coronary artery calcifications present. Heart size is normal. No pericardial effusion. MEDIASTINUM: Unremarkable. No mediastinal or hilar adenopathy. Esophagus is unremarkable. No hiatal hernia. THYROID: Unremarkable. No thyroid lesions. BONES/JOINTS: Unremarkable. No suspicious lytic or blastic abnormality. VASCULATURE: Unremarkable. Thoracic aorta is non-dilated. LYMPH NODES: Unremarkable. No enlarged lymph nodes. CT/Low Dose CT Lung Screening IMPRESSION: 1. Minimal emphysematous change in lung apices with scarring. There are no acute abnormalities identified. 2. Lung RADS category 1. Electronically Signed: Neto Sims MD at 11:04 EDT ,
== END | disposition home or self-care (01) ==
LOC: CT 07:10
PROVIDERS: PCP Family Medicine; Visit Provider Family Medicine
DX: F17.200 Nicotine dependence, unspecified, uncomplicated (principal)
CPT/HCPCS: 71271

== ENCOUNTER → 2022-02-03 | Outpatient (CLI) | payer MEDICAID, SELFPAY ==
--- NOTE | 2022-02-03 15:37 | PFTCOMP_ITS ---
COMPLETE PULMONARY FUNCTION TEST INTERPRETATION Brief HPI: Patient is a 61-year-old female, currently under the care of Courtney Delcid, who presents to [facility] for complete pulmonary function tests secondary to diagnosis of COPD. Respiratory therapist reports good effort and reproducible results. Interpretation: Forced expiration spirometry shows a mild large airways obstructive ventilatory defect with an FEV1 of 82% predicted. There is a significant bronchodilator response in FEV1 by strict ATS criteria. Spirograms are of good quality and plateau slowly, indicating slowly emptying areas of the lungs. The respiratory flow volume loop shows decreased expiratory flow rates at all lung volumes consistent with airway obstruction. Lung volumes by body plethysmography show a normal total lung capacity at 4.66 L, 85% predicted. All other lung volumes are at the lower limits of normal. Diffusion capacity by carbon monoxide is normal at 76% predicted. The airway resistance is slightly elevated. No previous pulmonary function tests were available for review. Impression: Partially reversible mild large airways obstructive ventilatory defect and a pattern consistent with COPD/asthma overlap syndrome
== END | disposition home or self-care (01) ==
LOC: PSN 10:31
PROVIDERS: PCP Family Medicine; Referring Provider Nurse Practitioner Acute Care; Visit Provider Nurse Practitioner Acute Care
DX: J44.9 Chronic obstructive pulmonary disease, unspecified (principal)
CPT/HCPCS: 94060; 94726; 94729

== ENCOUNTER → 2022-02-13 | Outpatient (CLI) | payer MEDICAID, SELFPAY ==
[2022-02-20 00:06] LABS: Age Gdln ACOG Testing 30-65 (.)
[2022-02-20 16:28] LABS: HPV APTIMA, High Risk Negative (Negative)
[2022-02-20 16:29] LABS: HPV Reflexed? YES, CHARGE PATIENT
== END | disposition home or self-care (01) ==
LOC: LABSPEC 10:20
PROVIDERS: PCP Family Medicine; Visit Provider Family Medicine
DX: Z12.4 Encounter for screening for malignant neoplasm of cervix (principal)
CPT/HCPCS: 87624; 88175; G0145

== ENCOUNTER → 2022-03-04 | Outpatient (CLI) | payer MEDICAID, SELFPAY ==
[2022-03-04 11:15] VITALS: PULSE 103; PULSE 110; PULSE 80; PULSE 83; PULSE 92; PULSE 93; PULSE 94; O2SAT 93; O2SAT 95; O2SAT 97; O2SAT 98
--- NOTE | 2022-03-04 12:49 | PCM.PSN.6M ---
PSN 6 Minute Walk Test 6 Minute Walk Test 6 Minute Walk Test: 6 Minute Walk Test PSN:6-Minute Walk Test Start: 03/04/22 11:27 Freq: Status: Active Protocol: RESP.6MINW Document 03/04/22 11:15 HJ (Rec: 03/04/22 11:30 [id number]) 6 Minute Walk Test Date Performed 03/04/22 Time Performed 11:15 Height 5 ft 8 in Weight: 77.111 kg Weight in Pounds 170.[address]: Courtney Delcid [employer] ATTENDANT FIO2 (% Oxygen) 21 Assistive device used: None Pre-test Oxygen Delivery Method Room Air Pulse Ox (%) 95 Pulse Rate (60-100 beats/min) 80 Dyspnea Rosetta Scale (0-10) 0 Exertion Rosetta Scale (6-20) 6 1st minute Oxygen Delivery Method Room Air Pulse Ox (%) 97 Pulse Rate (60-100 beats/min) 103 H 2nd minute Oxygen Delivery Method Room Air Pulse Ox (%) 93 Pulse Rate (60-100 beats/min) 94 3rd minute Oxygen Delivery Method Room Air Pulse Ox (%) 93 Pulse Rate (60-100 beats/min) 110 H 4th minute Oxygen Delivery Method Room Air Pulse Ox (%) 98 Pulse Rate (60-100 beats/min) 110 H 5th minute Oxygen Delivery Method Room Air Pulse Ox (%) 98 Pulse Rate (60-100 beats/min) 92 6th minute Oxygen Delivery Method Room Air Pulse Ox (%) 98 Pulse Rate (60-100 beats/min) 93 Post-test Oxygen Delivery Method Room Air Pulse Ox (%) 97 Pulse Rate (60-100 beats/min) 83 Dyspnea Rosetta Scale (0-10) 2 Exertion Rosetta Scale (6-20) 11 Full Laps Walked 13 Partial Lap, Number of Tiles Walked 0 Total Distance Walked (ft) 767 Interpretation Interpretation: The patient was able to ambulate 767 feet over the course of 6 minutes on room air with no assistive devices or breaks. The patient experienced significant tachycardia with a peak heart rate of 110 bpm. No significant desaturation was noted. These findings are consistent with a cardiovascular limitation exercise tolerance. Recommendations Recommendations: No supplemental oxygen is indicated at this time.
== END | disposition home or self-care (01) ==
LOC: PSN 11:08
PROVIDERS: PCP Family Medicine; Referring Provider Nurse Practitioner Acute Care; Visit Provider Nurse Practitioner Acute Care
DX: J44.9 Chronic obstructive pulmonary disease, unspecified (principal)
CPT/HCPCS: 94618

== ENCOUNTER → 2022-03-14 | Outpatient (CLI) | payer MEDICAID, SELFPAY ==
[2022-03-14 10:49] LABS: AST(SGOT) 13 U/L (15-37); Alanine Aminotransfer ALT/SGPT 36 U/L (13-56); Albumin, Serum 3.7 g/dL (3.2-5.0); Alkaline Phosphatase 90 U/L (45-117); Bilirubin, Direct 0.11 mg/dL (0.00-0.30); Cholesterol 160 mg/dL (200); Globulin 3.8 g/dL (2.2-4.2); High Density Lipoprotein 48 mg/dL; Protein, Total 7.5 g/dL (6.4-8.2); Triglycerides 84 mg/dL; Very Low Density Lipoprotein 17 mg/dL (5-40)
[2022-03-15 14:52] LABS: Alpha Antitrypsin Serum 111 mg/dL (101-187)
== END | disposition home or self-care (01) ==
LOC: PAVLAB 10:04
PROVIDERS: Internal Medicine Cardiovascular Disease; PCP Family Medicine; Referring Provider Nurse Practitioner Acute Care; Visit Provider Nurse Practitioner Acute Care
DX: E88.01 Alpha-1-antitrypsin deficiency (principal); E78.5 Hyperlipidemia, unspecified
CPT/HCPCS: 36415; 80061; 80076; 82103

== ENCOUNTER → 2022-03-25 | Outpatient (CLI) | payer MEDICAID, SELFPAY ==
--- NOTE | 2022-03-25 10:08 | BI_ITS ---
MAMMOGRAPHY - BILATERAL SCREENING REASON FOR EXAM: Female, 61 years old. Routine annual screening examination. PERTINENT HISTORY: Non-contributory. Prior right ultrasound breast biopsies. TECHNIQUE: Digital bilateral breast marisela (3D mammographic acquisition) in the CC and MLO projections. 2-D mediolateral oblique (MLO) and craniocaudad (CC) views of both breasts were obtained. CAD: Full Field Digital Mammography with Computer Added Detection was performed. COMPARISON: Comparison is made with prior examination dated 03/13/2021 and 02/02/2020. FINDINGS: Breast Composition: The breasts are heterogeneously dense, which may obscure small masses. There are no dominant masses or suspicious calcifications. 2 tissue clip markers are seen in the anterior upper lateral portion of the right breast. Benign appearing bilateral axillary lymph nodes. No other significant abnormalities are identified. BI/SCRN MAMM (CAD)W/MARISELA BILAT IMPRESSION: Status post ultrasound-guided breast biopsy in the anterior upper lateral portion right breast. Yearly follow-up mammogram recommended. (A) ASSESSMENT CATEGORY: BIRADS Category 2: Benign. A letter regarding these results will be sent to the patient by the facility within 30 days. Approximately 10% of breast cancers are not detected by mammography. A normal mammogram should not delay biopsy of a clinically suspicious abnormality. [id number] Electronically Signed: Jamaal Pat MD at 11:23 EST ,
== END | disposition home or self-care (01) ==
PROVIDERS: PCP Family Medicine; Visit Provider Family Medicine
DX: Z12.31 Encounter for screening mammogram for malignant neoplasm of breast (principal)
CPT/HCPCS: 77063; 77067

== ENCOUNTER → 2022-04-11 | Outpatient (CLI) | payer MEDICAID, SELFPAY | END | disposition home or self-care (01) | LOC: SL 20:12 | PROVIDERS: PCP Family Medicine; Referring Provider Nurse Practitioner Acute Care; Visit Provider Nurse Practitioner Acute Care | DX: G47.33 Obstructive sleep apnea (adult) (pediatric) (principal) | CPT/HCPCS: 95810 ==

== ENCOUNTER → 2022-08-22 | Outpatient (CLI) | payer MEDICAID, SELFPAY ==
[2022-08-22 15:32] LABS: Absolute Lymphocyte Count 2.31 X10^3/uL (0.83-4.51); Absolute Neutrophil Count 5.3 X10^3/uL (2.0-7.7); Basophil# 0.07 X10^3/uL; Basophil% 0.8 % (0-1); Eosinophil# 0.31 X10^3/uL; Eosinophils% 3.5 % (0-5); Hematocrit 43.5 % (37-47); Hemoglobin 14.1 g/dL (12.0-15.0); Lymphocyte # 2.31 X10^3/ul (0.83-4.51); Mean Corp Hgb Conc 32.4 g/dL (32-36); Mean Corpuscular Hgb 30.8 pg (27.0-32.0); Mean Platelet Vol. 10.1 fl (6.2-12.0); Monocyte# 0.83 X10^3/uL; Monocyte% 9.3 % (0-10); NRBC Flagged by Analyzer 0 % (0-5); Neutrophil # 5.34 X10^3/uL (2.7-7.7); Platelet Count 292 K/mm3 (150-450); RBC Distribution Width CV 13.2 % (11.6-14.6); RBC Distribution Width SD 46.4 fl (35.1-43.9); Red Blood Count 4.58 M/mm3 (4.2-5.4); White Blood Count 8.9 K/mm3 (4.4-11.0)
[2022-08-22 15:54] LABS: ALB/GLOB Ratio 0.9 RATIO (0.9-2.4); AST(SGOT) 28 U/L (15-37); Alanine Aminotransfer ALT/SGPT 37 U/L (13-56); Albumin, Serum 3.8 g/dL (3.2-5.0); Alkaline Phosphatase 95 U/L (45-117); Anion Gap 4 (5-15); BUN 17 mg/dL (7-18); BUN/Creat Ratio 19.3 RATIO (10-20); Calcium,Total 9.5 mg/dL (8.5-10.1); Chloride 105 mmol/L (98-107); Creatinine, Serum 0.88 mg/dL (0.55-1.02); EST Glomerular Filtration Rate 70 mL/min (>60); Est Glom Filt Rate - Afr Amer 84 mL/min (>60); Globulin 4.2 g/dL (2.2-4.2); Glucose 81 mg/dL (74-106); Potassium 3.6 mmol/L (3.5-5.1); Sodium Level 140 mmol/L (136-145)
[2022-08-22 20:00] LABS: Hemoglobin A1c 5.3 % (3.8-5.6)
== END | disposition home or self-care (01) ==
LOC: BFHLAB 12:04
PROVIDERS: PCP Family Medicine; Visit Provider Family Medicine
DX: I25.10 Atherosclerotic heart disease of native coronary artery without angina pectoris (principal); Z79.899 Other long term (current) drug therapy
CPT/HCPCS: 36415; 80053; 83036; 85025

== ENCOUNTER → 2022-11-25 | Outpatient (CLI) | payer MEDICAID, SELFPAY ==
[2022-11-25 11:11] LABS: AST(SGOT) 13 U/L (15-37); Alanine Aminotransfer ALT/SGPT 29 U/L (13-56); Albumin, Serum 3.7 g/dL (3.2-5.0); Alkaline Phosphatase 98 U/L (45-117); Bilirubin, Direct 0.14 mg/dL (0.00-0.30); Cholesterol 132 mg/dL (200); Globulin 3.6 g/dL (2.2-4.2); High Density Lipoprotein 39 mg/dL; Protein, Total 7.3 g/dL (6.4-8.2); Triglycerides 102 mg/dL; Very Low Density Lipoprotein 20 mg/dL (5-40)
== END | disposition home or self-care (01) ==
LOC: LAB 09:50
PROVIDERS: PCP Family Medicine; Referring Provider Internal Medicine Cardiovascular Disease; Visit Provider Internal Medicine Cardiovascular Disease
DX: E78.00 Pure hypercholesterolemia, unspecified (principal)
CPT/HCPCS: 36415; 80061; 80076

== ENCOUNTER → 2022-12-04 | Outpatient (CLI) | payer MEDICAID, SELFPAY ==
--- NOTE | 2022-12-08 07:04 | PFT ---
INTRODUCTION: The patient is a 62-year-old female who presents for pulmonary function studies secondary to a diagnosis of COPD. Respiratory therapy reported good patient effort. Bronchodilators were used during testing. INTERPRETATION: Forced expiration spirometry demonstrates the presence of a mild large airways obstructive ventilatory defect. There was no significant response to aerosolized bronchodilators. Spirograms are of good quality and plateau gradually indicating slow emptying of the lungs. Body plethysmography was performed and revealed evidence of hyperinflation and air trapping. Diffusing capacity by single breath CO was reduced to 63% of predicted. IMPRESSION: Irreversible mild large airways obstructive ventilatory defect with associated hyperinflation, air trapping and symmetric reduction in diffusing capacity.
== END | disposition home or self-care (01) ==
LOC: PSN 10:24
PROVIDERS: PCP Family Medicine; Referring Provider Nurse Practitioner Acute Care; Visit Provider Nurse Practitioner Acute Care
DX: J44.9 Chronic obstructive pulmonary disease, unspecified (principal)
CPT/HCPCS: 94060; 94726; 94729

== ENCOUNTER → 2022-12-27 | Outpatient (CLI) | payer MEDICAID, SELFPAY ==
--- NOTE | 2022-12-27 08:42 | CT_ITS ---
STUDY: LOW DOSE CT LUNG CANCER SCREENING REASON FOR EXAM: Female, 62 years old. 2 half pack per day smoker x50 years RADIATION DOSAGE (If Supplied By Facility): CTDIvol = ( 3.02 ) mGy, DLP = ( 98.55 ) mGy TECHNIQUE: No contrast was administered. Low dose technique was utilized (average mAS-38 and kVp 120). 1.25 mm axial source images with a slice interval of 1.25-mm were reconstructed in lung windows. 2.5 mm axial source images with a slice interval of 2.5-mm were reconstructed in lung windows. 5.0 mm axial source images with a slice interval of 5.0-mm were reconstructed in soft tissue windows. COMPARISON: 10/08/2021 FINDINGS: Lung windows show underlying emphysema with emphysematous bleb formation throughout both hemithoraces. Nonspecific pleural thickening noted in both hemithoraces. No suspicious noncalcified mass or nodule, no organizing infiltrate or effusion. Limited soft tissue windows show normal-appearing thyroid gland. No suspicious axillary, mediastinal, or perihilar adenopathy. Thoracic aorta tapers normally. There are calcified coronary vessels. Limited cuts of the upper abdomen do not show a suspicious abnormality. Bony structures show degenerative change CT/Low Dose CT Lung Screening IMPRESSION: IMPORTANT NOTES FOR USE: ACR Lung-RADS Version 1.1 Assessment Categories Release Date: 2018 Category: Coded 0-4 bases on nodule(s) with highest degree of suspicion. Negative screen is defined as categories 1 and 2; a positive screen is defined as categories 3 and 4. Category 3 and 4A nodules that are unchanged on interval CT should be coded as category 2, and individuals returned to screening in 12 months. Category 4X: Category 3 or 4 nodules with additional imaging findings that increase the suspicion of lung cancer, such as spiculation, GG that doubles in size in 1 year, enlarged lymph notes, etc. Category Modifiers: S (significant finding unrelated to lung cancer) Electronically Signed: Bright Campbell MD at 10:52 EDT ,
== END | disposition home or self-care (01) ==
LOC: CT 08:40
PROVIDERS: PCP Family Medicine; Referring Provider Nurse Practitioner Acute Care; Visit Provider Nurse Practitioner Acute Care
DX: F17.210 Nicotine dependence, cigarettes, uncomplicated (principal)
CPT/HCPCS: 71271

== ENCOUNTER → 2023-02-19 | Outpatient (CLI) | payer MEDICAID, SELFPAY ==
[2023-02-19 12:38] LABS: Absolute Lymphocyte Count 1.97 X10^3/uL (0.83-4.51); Absolute Neutrophil Count 7.3 X10^3/uL (2.0-7.7); Basophil# 0.07 X10^3/uL; Basophil% 0.7 % (0-1); Eosinophil# 0.25 X10^3/uL; Eosinophils% 2.4 % (0-5); Hematocrit 41.4 % (37-47); Hemoglobin 13.2 g/dL (12.0-15.0); Lymphocyte # 1.97 X10^3/ul (0.83-4.51); Lymphocyte % 18.8 % (19-41); Mean Corp Hgb Conc 31.9 g/dL (32-36); Mean Corpuscular Hgb 30.3 pg (27.0-32.0); Mean Corpuscular Volume 95.2 fL (81-99); Mean Platelet Vol. 10.7 fl (6.2-12.0); Monocyte# 0.86 X10^3/uL; Monocyte% 8.2 % (0-10); NRBC Flagged by Analyzer 0 % (0-5); Neutrophil # 7.33 X10^3/uL (2.7-7.7); Neutrophil % 69.7 % (47-70); Platelet Count 310 K/mm3 (150-450); RBC Distribution Width CV 13.4 % (11.6-14.6); RBC Distribution Width SD 47.6 fl (35.1-43.9); Red Blood Count 4.35 M/mm3 (4.2-5.4); White Blood Count 10.5 K/mm3 (4.4-11.0)
[2023-02-19 13:00] LABS: ALB/GLOB Ratio 0.9 RATIO (0.9-2.4); AST(SGOT) 18 U/L (15-37); Alanine Aminotransfer ALT/SGPT 28 U/L (13-56); Albumin, Serum 3.4 g/dL (3.2-5.0); Alkaline Phosphatase 98 U/L (45-117); Anion Gap 6 (5-15); BUN 14 mg/dL (7-18); BUN/Creat Ratio 17.1 RATIO (10-20); Calcium,Total 8.6 mg/dL (8.5-10.1); Chloride 110 mmol/L (98-107); Creatinine, Serum 0.82 mg/dL (0.55-1.02); EST Glomerular Filtration Rate 76 mL/min (>60); Est Glom Filt Rate - Afr Amer 92 mL/min (>60); Globulin 3.8 g/dL (2.2-4.2); Glucose 111 mg/dL (74-106); Potassium 3.8 mmol/L (3.5-5.1); Protein, Total 7.2 g/dL (6.4-8.2); Sodium Level 143 mmol/L (136-145); Thyroid Stim Hormone (TSH) 0.75 uIU/mL (0.358-3.74)
== END | disposition home or self-care (01) ==
LOC: BFHLAB 09:41
PROVIDERS: PCP Family Medicine; Visit Provider Family Medicine
DX: I25.10 Atherosclerotic heart disease of native coronary artery without angina pectoris (principal); Z79.899 Other long term (current) drug therapy
CPT/HCPCS: 36415; 80053; 84443; 85025

== ENCOUNTER → 2023-03-27 | Outpatient (CLI) | payer MEDICAID, SELFPAY ==
--- NOTE | 2023-03-27 09:04 | BI_ITS ---
MAMMOGRAPHY - BILATERAL SCREENING REASON FOR EXAM: Female, 62 years old. Routine annual screening examination. PERTINENT HISTORY: Non-contributory. History of prior right ultrasound-guided breast biopsies. TECHNIQUE: Digital bilateral breast marisela (3D mammographic acquisition) in the CC and MLO projections. 2-D mediolateral oblique (MLO) and craniocaudad (CC) views of both breasts were obtained. CAD: Full Field Digital Mammography with Computer Added Detection was performed. COMPARISON: Comparison is made with prior study dated March 25, 2022 and March 13, 2021. FINDINGS: Breast Composition: The breasts are heterogeneously dense, which may obscure small masses. There are no dominant masses or suspicious calcifications. Months again, 2 tissue markers are seen in the anterior upper right lateral aspect of the right breast. Stable benign-appearing bilateral axillary lymph nodes. No other significant abnormalities are identified. There has been no significant change since the prior study. BI/SCRN MAMM (CAD)W/MARISELA BILAT IMPRESSION: Stable bilateral screening mammogram. Yearly follow-up mammogram recommended. (A) ASSESSMENT CATEGORY: BIRADS Category 2: Benign. A letter regarding these results will be sent to the patient by the facility within 30 days. Approximately 10% of breast cancers are not detected by mammography. A normal mammogram should not delay biopsy of a clinically suspicious abnormality. [id number] Electronically Signed: Jamaal Pat MD at 12:23 EST ,
--- OUTSIDE RECORDS SUMMARY | 2023-03-27 09:24 | XMS RPT_ITS | CCD ---
Author Name Unknown Address [address] [place] [address] Organization [facility] Care Team Providers Care Awake Overnight Monitor Name Role Phone Malaika MARTIN, Sabiha Villalobos Unavailable [phone] Essie Grajeda Unavailable Unavailable Angelica Llanos Unavailable Elis MARTIN, Bharati Cid Unavailable Unavailable Elis MARTIN, Bharati Cid Unavailable Unavailable Elis RN, Bharati Cid Unavailable Unavailable Medications Completed/Discontinued Medications Medication Drug Class(es) Dates Sig (Normalized) Sig (Original) ALBUTEROL SULFATE (6 sources) beta2-Adrenergic Agonist Start: 10-08-2016 VENTOLIN HFA 108 (90 Base) MCG/ACT AERS As needed - 90mcg/inh ALBUTEROL SULFATE [id number] Bharati Gillis RN Problems Problem Classification Problem Date Documented Date Episodic/Chronic Acute myocardial infarction (6 sources) Myocardial infarction; Translations: [Non-ST elevation (NSTEMI) myocardial infarction] Onset: 10-08-2016 10-08-2016 Chronic Chronic obstructive pulmonary disease and bronchiectasis (6 sources) Chronic obstructive lung disease; Translations: [Chronic obstructive pulmonary disease, unspecified] 10-08-2016 Chronic Coronary atherosclerosis and other heart disease (6 sources) Atherosclerotic heart disease of [place] coronary artery without angina pectoris; Translations: [Atherosclerotic heart disease of [place] coronary artery without angina pectoris] Onset: 10-08-2016 10-08-2016 Chronic Disorders of lipid metabolism (6 sources) Hyperlipidemia; Translations: [Hyperlipidemia, unspecified] 10-08-2016 Chronic Essential hypertension (6 sources) Hypertensive disorder; Translations: [Essential (primary) hypertension] 10-08-2016 Chronic Other nutritional; endocrine; and metabolic disorders (5 sources) Body mass index (BMI) 32.0-32.9, adult; Translations: [Body mass index (BMI) 32.0-32.9, adult] Onset: 10-16-2016 10-16-2016 Chronic Unclassified (5 sources) Placement of stent in coronary artery ; Translations: [Presence of cardiac and vascular implant and graft, unspecified] Onset: 10-08-2016 10-08-2016 Results Test Name Value Interpretation Reference Range Facil ity Vital Signs Date Time Vital Sign Value Performing Clinician Bob lopez 10-16-2016 13:21-0400 Heart rate 83 /min Bharati Gillis RN [facility] Work Phone: 10-16-2016 13:03-0400 BMI (Body Mass Index) 32.32 kg/m2 Bharati [facility] Work Phone: 10-16-2016 13:03-0400 Body Temperature 99 [degF] Bharati Gillis RN [facility] Work Phone: 10-16-2016 13:03-0400 BP Diastolic 84 mm[Hg] Bharati Gillis RN [facility] Work Phone: 10-16-2016 13:03-0400 BP Systolic 120 mm[Hg] Bharati Gillis RN [facility] Work Phone: 10-16-2016 13:03-0400 Height 170.18 cm Bharati Gillis RN [facility] Work Phone: 10-16-2016 13:03-0400 Pulse (Heart Rate) 83 /min Bharati Gillis RN [facility] Work Phone: 10-16-2016 13:03-0400 Respiratory Rate 20 /min Bharati Gillis RN [facility] Work Phone: 10-16-2016 13:03-0400 Weight 93.61 kg Bharati Gillis RN [facility] Work Phone: Procedures Date Procedure Procedure Detail Performing Clinician Start: 10-16-2016 End: 10-16-2016 Follow Up Appt 4 months Bari Kelley Start: 10-16-2016 End: 10-16-2016 GARRET Crouch MD Start: 10-08-2016 Placement of stent i n coronary artery Coronary stent Bharati Gillis RN Plan of Treatment Date Care Activity Detail Author Start: 02-13-2017 End: 02-13-2017 Appointment Appointment [facility] Work Phone: Start: 10-16-2016 End: 10-16-2016 Appointment Appointment [facility] Work Phone: Start: 10-16-2016 End: 10-16-2016 *Hepatic Function Panel *Hepatic Function Panel [facility] Work Phone: Start: 10-16-2016 End: 10-16-2016 Cardiac Rehab Cardiac Rehab [facility] Work Phone: Start: 10-16-2016 End: 10-16-2016 Electrocardiogram, complete EKG (In office) [facility] Work Phone: Start: 10-16-2016 End: 10-16-2016 Follow Up Appt 4 months Follow Up Appt 4 months [facility] Work Phone: Start: 10-16-2016 End: 10-16-2016 Lipid panel [AGGREGATE] *Lipid Profile CC PCP [facility] Work Phone: Start: 10-16-2016 End: 10-16-2016 MMM MMM [facility] Work Phone: Start: 10-08-2016 End: 10-17-2016 Cardiac Rehab Cardiac Rehab [address] [place], [address] [facility] Work Phone: Additional Source Comments FOR RECORDS PERTAINING TO PATIENTS WHO ARE OR HAVE BEEN ENROLLED IN A CHEMICAL DEPENDENCY/SUBSTANCEABUSE PROGRAM, SOME INFORMATION MAY BE OMITTED. This clinical summary was aggregated from multiple sources. Caution should be exercised in using it in the provision of clinical care. This summary normalizes information from multiple sources, and as a consequence, information in this document may materially change the coding, format and clinical context of patient data. In addition, data may be omitted in some cases. CLINICAL DECISIONS SHOULD BE BASED ON THE PRIMARY CLINICAL RECORDS. [employer] [facility]. provides no warranty or guarantee of the accuracy or completeness of information in this document.
== END | disposition home or self-care (01) ==
LOC: OPBI 09:01
PROVIDERS: PCP Family Medicine; Referring Provider Family Medicine; Visit Provider Family Medicine
DX: Z12.31 Encounter for screening mammogram for malignant neoplasm of breast (principal)
CPT/HCPCS: 77063; 77067

== ENCOUNTER → 2023-08-15 | Outpatient (CLI) | payer MEDICAID, SELFPAY ==
--- NOTE | 2023-08-15 09:55 | CT_ITS ---
INDICATION: LIPOMA VS CYST RT ANKLE EXAMINATION: CT Lower Extremity W/O Contrast Injection TECHNIQUE: Helically acquired images were obtained of the right ankle. 2-D reformats were performed by the technologist. A radiation dose optimization technique was used for this scan. IV Contrast dosage and agent: None. COMPARISON: None. FINDINGS: BONES AND ALIGNMENT: No acute fractures. The alignment is anatomic. JOINTS: Mild scattered degenerative changes. SOFT TISSUES: No significant soft tissue swelling. CT/Extremity Lower without Contra IMPRESSION: Normal ankle. Electronically Signed: Juan R Bell MD at 16:46 EDT ,
== END | disposition home or self-care (01) ==
LOC: CT 09:53
PROVIDERS: PCP Family Medicine; Referring Provider Nurse Practitioner Family; Visit Provider Nurse Practitioner Family
DX: M79.89 Other specified soft tissue disorders (principal)
CPT/HCPCS: 73700

== ENCOUNTER → 2023-09-08 | Outpatient (CLI) | payer MEDICAID, SELFPAY | END | disposition home or self-care (01) | LOC: LABSPEC 16:14 | PROVIDERS: PCP Family Medicine; Referring Provider Otolaryngology Otolaryngology/Facial Plastic Surgery; Visit Provider Otolaryngology Otolaryngology/Facial Plastic Surgery | DX: H92.12 Otorrhea, left ear (principal) | CPT/HCPCS: 87070; 87075; 87077; 87186; 87205 ==

== ENCOUNTER → 2023-09-09 | Outpatient (CLI) | payer MEDICAID, SELFPAY ==
--- NOTE | 2023-09-09 13:01 | STRESSREP ---
Stress Test Report Pharmacologic myocardial perfusion stress test. 62-year-old lady with a history of chest pain Resting EKG demonstrates sinus rhythm with a rate of 63 bpm. Resting blood pressure is 130/92 mmHg. 0.4 mg of regadenoson was infused per usual protocol followed by rapid intravenous saline flush injection. Continuous EKG monitoring was performed. The maximum heart rate was 98 bpm which was 61% of max impacted heart rate the maximum workload was 1 metabolic equivalent. At rest there were no ST or T wave changes noted to suggest ischemia and at peak infusion nonspecific ST changes were noted which did not meet the criteria for ischemia. No clinical angina is noted. The final blood pressure was 126/84 mmHg. Myocardial perfusion protocol. 11.5 mCi of technetium 99m sestamibi was injected at rest. 0.4 mg of regadenoson was infused per usual protocol. At peak infusion 33.9 mCi of technetium 99m sestamibi was injected stress images were obtained stress and rest images were reconstructed and compared in the short axis vertical long and horizontal long axis. Gated images were also obtained. Perfusion SPECT analysis: Review of the stress images demonstrate normal uptake of tracer noted in all areas of the myocardium. The resting images similar demonstrated normal uptake of tracer noted in all areas of the myocardium. No areas of reversibility are noted to suggest ischemia and no previous infarct is noted. Of note is the fact that there is significant GI attenuation artifact and this makes the inferior wall somewhat difficult to evaluate. Conclusion: Normal pharmacologic myocardial perfusion stress test.
== END | disposition home or self-care (01) ==
LOC: CVS 07:17
PROVIDERS: PCP Family Medicine; Referring Provider Nurse Practitioner Family; Visit Provider Nurse Practitioner Family
DX: R07.9 Chest pain, unspecified (principal); I25.10 Atherosclerotic heart disease of native coronary artery without angina pectoris; Z95.5 Presence of coronary angioplasty implant and graft
CPT/HCPCS: 78452; 93017; A9500; A4216; J2785

== ENCOUNTER → 2023-11-11 | Outpatient (CLI) | payer MEDICAID, SELFPAY ==
--- NOTE | 2023-11-11 08:44 | ECHOD_ITS ---
Reason For Study: CHEST PAIN Procedure This was a 2D Doppler, Color Flow transthoracic echocardiogram. Exam performed in department. Left Ventricle Normal LV size. Left ventricular systolic function is normal. The left ventricular ejection fraction is 55 %. Stage 1 diastolic dysfunction. Right Ventricle Normal RV size. Normal systolic function. Atria Normal left atrium. Normal right atrium. Mitral Valve Normal mitral valve. Tricuspid Valve Normal tricuspid valve. Aortic Valve Trisinus/trileaflet aortic valve. Mild (1+) aortic valve insufficiency. Pulmonic Valve Normal pulmonic valve. Great Vessels Normal aortic root. The pulmonary artery is normal size. Normal inferior vena cava. Pericardium/Pleural No pericardial effusion. MMode/2D Measurements & Calculations LVIDd: 5.0 cm IVSd: 1.0 cm Ao root diam: 3.1 cm LVIDs: 3.7 cm LVPWd: 1.00 cm RVDd: 2.8 cm FS: 26.3 % LAV(MOD-bp): 39.9 ml LVAd ap4: 31.3 cm2 SV(MOD-sp4): 56.3 ml LAV(MOD-bp) Indexed: 21.7 ml/m2 LVLd ap4: 7.6 cm LAV(MOD-sp2): 40.9 ml EDV(MOD-sp4): 109.2 ml LAV(MOD-sp4): 37.1 ml EDV(sp4-el): 109.7 ml LVAs ap4: 19.9 cm2 LVLs ap4: 6.5 cm ESV(MOD-sp4): 52.9 ml ESV(sp4-el): 52.0 ml EF(MOD-sp4): 51.5 % EF(sp4-el): 52.6 % SV(sp4-el): 57.7 ml LA A4 area: 15.5 cm2 LA dimension(2D): 3.5 cm RA A4 area: 13.2 cm2 TAPSE: 2.8 cm Time Measurements MV dec time: 0.24 sec Doppler Measurements & Calculations MV E max stefan: 82.5 cm/sec Lat Peak E' Stefan: 8.4 cm/sec Med Peak E' Stefan: 6.8 cm/sec MV A max stefan: 108.6 cm/sec E/E' lat: 9.8 E/E' med: 12.2 MV E/A: 0.76 MV V2 max: 115.5 cm/sec Ao V2 max: 158.2 cm/sec AI max stefan: 384.0 cm/sec MV max P.3 mmHg Ao max P.0 mmHg AI max P.7 mmHg MV V2 mean: 56.4 cm/sec Ao V2 mean: 106.6 cm/sec MV mean P.6 mmHg Ao mean P.2 mmHg AI dec slope: 260.2 cm/sec2 MV V2 VTI: 30.8 cm Ao V2 VTI: 34.5 cm AI P1/2t: 432.1 msec AV (velocity ratio): 0.82 LV V1 max: 116.9 cm/sec PA V2 max: 82.8 cm/sec TR max stefan: 252.0 cm/sec LV V1 max P.5 mmHg PA V2 mean: 62.1 cm/sec TR max P.4 mmHg LV V1 mean P.6 mmHg LV V1 mean: 92.0 cm/sec LV V1 VTI: 28.2 cm ECHO/Echo Complete Interpretation Summary Normal LV size. Left ventricular systolic function is normal. The left ventricular ejection fraction is 55 %. Stage 1 diastolic dysfunction. Mild (1+) aortic valve insufficiency. Ordering Physician: Nicolás Kruse Referring Physician: Anca Zabala Performed By: Aydee Rodriguez RVT, RDCS and Student
== END | disposition home or self-care (01) ==
LOC: CVS 08:41
PROVIDERS: PCP Family Medicine; Referring Provider Nurse Practitioner Family; Visit Provider Nurse Practitioner Family
DX: R07.9 Chest pain, unspecified (principal); I25.10 Atherosclerotic heart disease of native coronary artery without angina pectoris; I10 Essential (primary) hypertension; E78.00 Pure hypercholesterolemia, unspecified; E66.9 Obesity, unspecified; Z95.5 Presence of coronary angioplasty implant and graft; F17.210 Nicotine dependence, cigarettes, uncomplicated
CPT/HCPCS: 93306

== ENCOUNTER → 2023-11-16 | Outpatient (CLI) | payer MEDICAID, SELFPAY ==
--- NOTE | 2023-11-16 09:30 | MRI_ITS ---
STUDY: MRI RIGHT ANKLE WITHOUT CONTRAST REASON FOR EXAM: Female, 62 years old. Soft tissue mass right ankle, pain, compare to previous CT. TECHNIQUE: Standardized fat and water weighted pulse sequences were obtained in all 3 orthogonal planes. COMPARISON: Right ankle CT dated 08/15/2023. FINDINGS: A skin marker was placed along the anterolateral aspect of the ankle at the site of clinical concern. There is no visualized abnormality or soft tissue mass subjacent to the skin marker. Normal subcutis adipose space. Normal posterior tibialis tendon. Normal flexor digitorum longus tendon. Normal flexor hallucis longus tendon. Normal peroneus longus and brevis tendons. Normal tibialis anterior tendon. Normal extensor hallucis longus tendon. Normal extensor digitorum longus tendons. Normal Achilles tendon and teno-osseous insertion. Normal plantar fascia. Normal plantar calcaneal tubercles. Normal intrinsic muscles of the rearfoot. Normal distal tibiofibular syndesmotic ligamentous complex. Normal lateral ligamentous complex. Normal subtalar ligaments and sinus tarsi. Normal deltoid ligamentous complex. Normal plantar calcaneonavicular (spring) ligament. Normal tibiotalar articulation. Normal talar dome. Normal subtalar articulations. Normal talonavicular articulation. Normal calcaneocuboid articulation. Normal navicular-cuneiform articulations. MRI/Lower Ext Joint Only (Routine) IMPRESSION: Unremarkable MRI of the ankle and rearfoot. No discrete soft tissue mass identified. Electronically Signed: Jamal Blanchard MD at 12:20 EDT ,
== END | disposition home or self-care (01) ==
LOC: MRI 08:54
PROVIDERS: PCP Family Medicine; Referring Provider Podiatrist; Visit Provider Podiatrist
DX: M25.571 Pain in right ankle and joints of right foot (principal); M79.9 Soft tissue disorder, unspecified
CPT/HCPCS: 73721

== ENCOUNTER → 2023-12-29 | Outpatient (CLI) | payer MEDICAID, SELFPAY ==
--- NOTE | 2023-12-29 08:16 | CT_ITS ---
EXAM: CT CHEST, LUNG CANCER SCREENING WITHOUT INTRAVENOUS CONTRAST CLINICAL INDICATION: smoker 100 pack-year TECHNIQUE: Helically acquired images were obtained of the chest without intravenous contrast using low dose (LDCT) lung cancer screening protocol. This CT exam was performed using one or more of the following dose reduction techniques: automated exposure control, adjustment of the mA and/or kV according to patient size, and/or use of iterative reconstruction technique. COMPARISON: 12/19/2022; 10/08/2021 FINDINGS: LUNGS AND PLEURAL SPACES: Centrilobular emphysema with biapical scarring. Unchanged 3 mm nodule in the left lower lobe (series 2, image 117). Unchanged 5 mm nodule in the posterior left lower lobe (2, 132). No pleural effusion or thickening. No pneumothorax. HEART: No significant abnormality. Heart size is normal. No pericardial effusion. No significant coronary artery calcifications. MEDIASTINUM: No significant abnormality. No mediastinal or hilar adenopathy. Esophagus is unremarkable. No hiatal hernia. THYROID: No significant abnormality. No thyroid lesions. BONES/JOINTS: No significant abnormality. No suspicious lytic or blastic abnormality. VASCULATURE: No significant abnormality. Thoracic aorta is non-dilated. LYMPH NODES: No significant abnormality. No enlarged lymph nodes. CT/Low Dose CT Lung Screening IMPRESSION: ACR Lung CT Screening Reporting And Data System (Lung-RADS) score: 2 - Benign Appearance or Behavior. Recommend continued annual screening with a low-dose CT (LDCT) in 12 months. Electronically Signed: Madi Barnes DO at 21:21 EDT ,
--- OUTSIDE RECORDS SUMMARY | 2023-12-29 08:36 | XMS RPT_ITS | CCD ---
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 Role Phone Malaika MARTIN, Sabiha Villalobos Unavailable [phone] Essie Grajeda Unavailable Unavailable Angelica Llanos Unavailable Elis MARTIN, Bharati Cid Unavailable Unavailable Elis MARTIN, Bharati Cid Unavailable Unavailable Elis MARTIN, Bharati Cid Unavailable Unavailable Medications Completed/Discontinued Medications Medication Drug Class(es) Dates Sig (Normalized) Sig (Original) ALBUTEROL SULFATE (6 sources) beta2-Adrenergic Agonist Start: 10-08-2016 VENTOLIN HFA 108 (90 Base) MCG/ACT AERS As needed - 90mcg/inh ALBUTEROL SULFATE [id number] Bharati Gillis RN Start: 10-08-2016 VENTOLIN HFA 1 08 (90 Base) MCG/ACT AERS As needed - 90mcg/inh ALBUTEROL SULFATE [id number] Bharati Gillis RN ALPRAZolam 0.5 mg oral tablet (6 sources) Benzodiazepine Start: 10-08-2016 XANAX 0.5 MG TABS as needed ALPRAZOLAM [id number] Bharati Gillis RN amLODIPine 2.5 mg oral tablet (6 sources) Dihydropyridine Calcium Channel Kelsy Start: 10-08-2016 take 1 tablet by mouth once daily AMLODIPINE BESYLATE 2.5 MG TABS One tablet by mouth daily. AMLODIPINE BESYLATE [id number] Yadiel Crouch MD ARIPiprazole 15 mg oral tablet (6 sources) Atypical Antipsychotic Start: 10-08-2016 take 1 tablet by mouth once daily ARIPIPRAZOLE 15 MG TABS One tablet by mouth daily ARIPIPRAZOLE [id number] Bharati Gillis RN aspirin 81 mg delayed release oral tablet (6 sources) Nonsteroidal Anti-inflammatory Drug Start: 10-08-2016 take 1 tablet by mouth once daily ASPIRIN EC 81 MG TBEC One tablet by mouth daily ASPIRIN [id number] Bharati Gillis RN atorvastatin 80 mg oral tablet (6 sources) HMG-CoA Reductase Inhibitor Start: 10-08-2016 take 1 tablet by mouth once daily ATORVASTATIN CALCIUM 80 MG TABS One tablet by mouth daily ATORVASTATIN CALCIUM [id number] Yadiel Crouch MD carvedilol 3.125 mg oral tablet (6 sources) alpha-Adrenergic Kelsy, beta-Adrenergic Kelsy Start: 10-08-2016 take 1 tablet by mouth twice daily COREG 3.125 MG TABS One tablet by mouth twice daily CARVEDILOL [id number] Yadiel Crouch MD clopidogrel 75 mg oral tablet (1 source) P2Y12 Platelet Inhibitor Start: 11-04-2016 take 1 tablet by mouth once daily CLOPIDOGREL BISULFATE 75 MG TABS One tablet by mouth daily CLOPIDOGREL BISULFATE [id number] Yadiel Crouch MD gabapentin 400 mg oral tablet (6 sources) Anti-epileptic Agent Start: 10-08-2016 take 1 tablet by mouth once daily at bedtime as needed NEURONTIN 400 MG CAPS One tablet by mouth daily at bedtime as needed GABAPENTIN [id number] Bharati Gillis RN Start: 10-08-2016 take 1 tablet by oneil th once daily at bedtime as needed NEURONTIN 400 MG CAPS One tablet by mouth daily at bedtime as needed GABAPENTIN [id number] Bharati Gillis RN lamoTRIgine 200 mg oral tablet (6 sources) Mood Stabilizer, Anti-epileptic Agent Start: 10-08-2016 take 1 tablet by mouth once daily LAMICTAL 200 MG TABS One tablet by mouth daily LAMOTRIGINE [id number] Bharati Gillis RN losartan potassium 50 mg oral tablet (11 sources) Angiotensin 2 Receptor Kelsy Start: 10-08-2016 End: 10-16-2016 take 1 tablet by mouth once daily LOSARTAN POTASSIUM 50 MG TABS One tablet by mouth daily LOSARTAN POTASSIUM [id number] Bharati Gillis RN nitroglycerin 0.3 mg sublingual tablet (6 sources) Nitrate Vasodilator Start: 10-08-2016 NITROGLYCERIN 0.3 MG SUBL 1 tablet under the tongue every 5 minutes times 3 as needed for chest pain. NITROGLYCERIN [id number] Bharati Gillis RN 24 hr oxybutynin chloride 5 mg extended release oral tablet (6 sources) Cholinergic Muscarinic Antagonist Start: 10-08-2016 take 1 tablet by mouth once daily OXYBUTYNIN CHLORIDE ER 5 MG [id number] One tablet by mouth daily OXYBUTYNIN CHLORIDE [id number] Bharati Gillis RN ticagrelor 90 mg oral tablet (7 sources) Start: 10-08-2016 End: 11-04-2016 take 1 tablet by mouth twice daily BRILINTA 90 MG TABS One tablet by mouth twice daily TICAGRELOR [id number] Sabiha Dai RN vilazodone hydrochloride 40 mg oral tablet (6 sources) Start: 10-08-2016 take 1 tablet by mouth once daily VIIBRYD 40 MG TABS One tablet by mouth daily VILAZODONE HCL [id number] Bharati Gillis RN Problems Problem Classification Problem Date Documented Date Episodic/Chronic Acute myocardial infarction (6 sources) Myocardial infarction; Translations: [Non-ST elevation (NSTEMI) myocardial infarction] Onset: 10-08-2016 10-08-2016 Chronic Chronic obstructive pulmonary disease and bronchiectasis (6 sources) Chronic obstructive lung disease; Translations: [Chronic obstructive pulmonary disease, unspecified] 10-08-2016 Chronic Coronary atherosclerosis and other heart disease (6 sources) Atherosclerotic heart disease of [place] coronary artery without angina pectoris; Translations: [Atherosclerotic heart disease of [place] coronary artery without angina pectoris] Onset: 10-08-2016 [...] Results Test Name Value Interpretation Reference Range Facility Office Visiton 10-16-2016 Documentation of current medications (procedure) Done Invalid Interpretation Code [facility] Work Phone: [phone] Fall risk assessment No Invalid Interpretation Code [facility] Work Phone: [phone] Protein mass conc Done [facility] Work Phone: [phone] Protein mass conc yes [facility] Work Phone: [phone] Smoking cessation education (procedure) yes Invalid Interpretation Code [facility] Work Phone: [phone] Tobacco smoking status NHIS Current every day smoker [facility] Work Phone: [phone] Tobacco use CPHS Current every day smoker Invalid Interpretation Code [facility] Work Phone: [phone] Replaced Document: Kenisha E CG Observationson 10-16-2016 EKG QRS axis 34 deg [facility] Work Phone: [phone] electrocardiogram interpretation Sinus Rhythm -First degree A-V block Rachael = 232- Nonspecific T-abnormality. Low voltage -possible pulmonary disease. ABNORMAL Invalid Interpretation Code [facility] Work Phone: [phone] GE use only - for [employer] import when terms are not otherwise specified 406 ms Invalid Interpretation Code [facility] Work Phone: [phone] Interpretation Sinus Rhythm -First degree A-V block Rachael = 232- Nonspecific T-abnormality. Low voltage -possible pulmonary disease. ABNORMAL [facility] Work Phone: [phone] P Shiloh 34 deg [facility] Work Phone: [phone] P wave axis, electrocardiogram 34 deg Invalid Interpretation Code [facility] Work Phone: [phone] ND Interval 232 ms [facility] Work Phone: [phone] ND interval, electrocardiogram 232 ms Invalid Interpretation Code [facility] Work Phone: [phone] Pulse (Heart Rate) 83 /min Invalid Interpretation Code [facility] Work Phone: [phone] QRS axis, electrocardiogram 34 deg Invalid Interpretation Code [facility] Work Phone: [phone] QRS Duration 90 ms [facility] Work Phone: [phone] QRS duration, electrocardiogram 90 ms Invalid Interpretation Code [facility] Work Phone: [phone] QT Interval new path ms [facility] Work Phone: [phone] QT interval, electrocardiogram new path ms Invalid Interpretation Code [facility] Work Phone: [phone] QTc Raymond 406 ms [facility] Work Phone: [phone] T Shiloh 144 deg [facility] Work Phone: [phone] T wave axis, electrocardiogram 144 deg Invalid Interpretation Code [facility] Work Phone: [phone] Clinical Lists Update: Prelo customs guard 10-13-2016 Anion gap 7 mmol/L Invalid Interpretation Code [facility] Work Phone: [phone] Anion gap molar conc 7 mmol/L [facility] Work Phone: [phone] BUN/Creatinine Ratio 14.3 mg/mg Invalid Interpretation Code [facility] Work Phone: [phone] Calcium 9.3 mg/dL Invalid Interpretation Code [facility] Work Phone: [phone] Chloride 107 mmol/L Invalid Interpretation Code [facility] Work Phone: [phone] CO2 26.0 mmol/L Invalid Interpretation Code [facility] Work Phone: [phone] CO2 ppres (BldV) 26.0 mmol/L [facility] Work Phone: [phone] Coagulation tissue factor induced in platelet poor plasma 13.3 s Invalid Interpretation Code [facility] Work Phone: [phone] Creatinine 0.91 mg/dL Invalid Interpretation Code [facility] Work Phone: [phone] Glucose 85 mg/dL Invalid Interpretation Code [facility] Work Phone: [phone] Glucose mass conc 85 mg/dL [facility] Work Phone: [phone] INR Coag RelTime (PPP) 1.1 {INR} [facility] Work Phone: [phone] INR in blood by coagulation 1.1 {INR} Invalid Interpretation Code [facility] Work Phone: [phone] Potassium 4.0 mmol/L Invalid Interpretation Code [facility] Work Phone: [phone] Sodium 140 mmol/L Invalid Interpretation Code [facility] Work Phone: [phone] Urea nitrogen 13 mg/dL Invalid Interpretation Code [facility] Work Phone: [phone] Clinical Lists Update: Prelo customs guard 10-01-2016 Cholesterol 159 mg/dL Invalid Interpretation Code [facility] Work Phone: [phone] Erythrocyte distribution width Ratio (RBC) 13.6 % [facility] Work Phone: [phone] Erythrocytes (RBC) 4.26 10*6/uL Invalid Interpretation Code [facility] Work Phone: [phone] HDL Cholesterol 34 mg/dL Low [facility] Work Phone: [phone] Hematocrit (HCT) 39.5 % Invalid Interpretation Code [facility] Work Phone: [phone] Hematocrit Volume Fraction (Bld) 39.5 % [facility] Work Phone: [phone] Hemoglobin (HGB) 12.8 g/dL Invalid Interpretation Code [facility] Work Phone: [phone] LDL Cholesterol 111 mg/dL Invalid Interpretation Code [facility] Work Phone: [phone] MCH 30.0 pg Invalid Interpretation Code [facility] Work Phone: [phone] MCH Entitic mass (RBC) 30.0 pg [facility] Work Phone: [phone] MCHC 32.4 g/dL Invalid Interpretation Code [facility] Work Phone: [phone] MCHC mass conc (RBC) 32.4 g/dL [facility] Work Phone: [phone] MCV 92.7 fL Invalid Interpretation Code [facility] Work Phone: [phone] MCV Entitic volume (RBC) 92.7 fL [facility] Work Phone: [phone] Platelet mean volume Entitic volume (Bld) 10.6 fL [facility] Work Phone: [phone] Platelets 466 10*3/mm3 High [facility] Work Phone: [phone] Platelets #/vol (Bld) 466 10*3/mm3 High [facility] Work Phone: [phone] PMV by Oriana 10.6 fL Invalid Interpretation Code [facility] Work Phone: [phone] RBC #/vol (Bld) 4.26 10*6/uL [facility] Work Phone: [phone] RDW-CA 13.6 % Invalid Interpretation Code [facility] Work Phone: [phone] Triglyceride 68 mg/dL Invalid Interpretation Code [facility] Work Phone: [phone] very low density lipoproteins 14 mg/dL Invalid Interpretation Code [facility] Work Phone: [phone] WBC #/vol (Bld) 7.9 10*3/uL [facility] Work Phone: [phone] WBC (Leukocytes) 7.9 10*3/uL Invalid Interpretation Code [facility] Work Phone: [phone] Vital Signs Date Time Vital Sign Value Performing Clinician Bob lopez 10-16-2016 13:21-0400 Heart rate 83 /min Bharati Gillis RN [facility] Work Phone: 10-16-2016 13:03-0400 BMI (Body Mass Index) 32.32 kg/m2 [facility] Work Phone: 10-16-2016 13:03-0400 Body Temperature 99 [degF] Bharati Gillis RN [facility] Work Phone: 10-16-2016 13:03-0400 BP Diastolic 84 mm[Hg] Bharati Gillis RN [facility] Work Phone: 10-16-2016 13:03-0400 BP Systolic 120 mm[Hg] Bharati Gillis RN [facility] Work Phone: 10-16-2016 13:03-0400 Height 170.18 cm Bharati Gillis RN [facility] Work Phone: 10-16-2016 13:03-0400 Pulse (Heart Rate) 83 /min Bharati Gillis RN [facility] Work Phone: 10-16-2016 13:03-0400 Respiratory Rate 20 /min Bharati Gillis RN [facility] Work Phone: 10-16-2016 13:03-0400 Weight 93.61 kg Bharati Gillis RN [facility] Work Phone: Procedures Date Procedure Procedure Detail Performing Clinician Start: 10-16-2016 End: 10-16-2016 Follow Up Appt 4 months Bari Kelley Start: 10-16-2016 End: 10-16-2016 GARRET Crouch MD Start: 10-08-2016 Placement of stent i n coronary artery Coronary stent Bharati Gillis RN Plan of Treatment Date Care Activity Detail Author Start: 02-13-2017 End: 02-13-2017 Appointment Appointment [facility] Work Phone: Start: 10-16-2016 End: 10-16-2016 Appointment Appointment [facility] Phone: Start: 10-16-2016 End: 10-16-2016 *Hepatic Function Panel *Hepatic Function Panel [facility] Work Phone: Start: 10-16-2016 End: 10-16-2016 Cardiac Rehab Cardiac Rehab [facility] Work Phone: Start: 10-16-2016 End: 10-16-2016 Electrocardiogram, complete EKG (In office) [facility] Work Phone: Start: 10-16-2016 End: 10-16-2016 Follow Up Appt 4 months Follow Up Appt 4 months [facility] Work Phone: Start: 10-16-2016 End: 10-16-2016 Lipid panel [AGGREGATE] *Lipid Profile CC PCP [facility] Work Phone: Start: 10-16-2016 End: 10-16-2016 MMM MMBari [facility] Work Phone: Start: 10-08-2016 End: 10-17-2016 Cardiac Rehab Cardiac Rehab [address] [place], [address] [facility] Work Phone: Additional Source Comments FOR RECORDS [...] BE BASED ON THE PRIMARY CLINICAL RECORDS. [employer] [facility]. provides no warranty or guarantee of the accuracy or completeness of information in this document.
== END | disposition home or self-care (01) ==
LOC: CT 08:14
PROVIDERS: PCP Family Medicine; Referring Provider Nurse Practitioner Acute Care; Visit Provider Nurse Practitioner Acute Care
DX: F17.210 Nicotine dependence, cigarettes, uncomplicated (principal)
CPT/HCPCS: 71271

== ENCOUNTER → 2024-02-26 | Outpatient (CLI) | payer MEDICAID, SELFPAY ==
[2024-02-26 12:13] LABS: Hematocrit 41.1 % (37-47); Hemoglobin 13.5 g/dL (12.0-15.0); Mean Corp Hgb Conc 32.8 g/dL (32-36); Mean Corpuscular Volume 97.4 fL (81-99); Mean Platelet Vol. 10.3 fl (6.2-12.0); Platelet Count 364 K/mm3 (150-450); RBC Distribution Width SD 46.6 fl (35.1-43.9); Red Blood Count 4.22 M/mm3 (4.2-5.4); White Blood Count 8.3 K/mm3 (4.4-11.0)
[2024-02-26 13:04] LABS: ALB/GLOB Ratio 0.8 RATIO (0.9-2.4); AST(SGOT) 15 U/L (15-37); Alanine Aminotransfer ALT/SGPT 28 U/L (13-56); Albumin, Serum 3.4 g/dL (3.2-5.0); Alkaline Phosphatase 107 U/L (45-117); Anion Gap 2 (5-15); BUN 10 mg/dL (7-18); BUN/Creat Ratio 12.8 RATIO (10-20); Calcium,Total 9.5 mg/dL (8.5-10.1); Chloride 108 mmol/L (98-107); Cholesterol 147 mg/dL (200); Creatinine, Serum 0.78 mg/dL (0.55-1.02); EST Glomerular Filtration Rate 80 mL/min (>60); Est Glom Filt Rate - Afr Amer 96 mL/min (>60); Globulin 4.3 g/dL (2.2-4.2); Glucose 94 mg/dL (74-106); High Density Lipoprotein 46 mg/dL; Potassium 3.5 mmol/L (3.5-5.1); Protein, Total 7.7 g/dL (6.4-8.2); Sodium Level 141 mmol/L (136-145); Thyroid Stim Hormone (TSH) 0.854 uIU/mL (0.358-3.740); Triglycerides 99 mg/dL; Very Low Density Lipoprotein 20 mg/dL (5-40)
[2024-02-27 04:06] LABS: PROLACTIN 6.1 ng/mL (3.6-25.2)
== END | disposition home or self-care (01) ==
LOC: MTLAB 10:01
PROVIDERS: PCP Family Medicine; Referring Provider Psychiatry & Neurology Psychiatry; Visit Provider Psychiatry & Neurology Psychiatry
DX: Z79.899 Other long term (current) drug therapy (principal)
CPT/HCPCS: 36415; 80053; 80061; 83036; 84146; 84443; 85027

== ENCOUNTER → 2024-03-22 | Outpatient (CLI) | payer MEDICAID, SELFPAY ==
[2024-03-22 11:00] VITALS: PULSE 73; PULSE 77; PULSE 91; PULSE 92; PULSE 93; PULSE 94; PULSE 95; O2SAT 94; O2SAT 95; O2SAT 96; O2SAT 97
--- NOTE | 2024-03-29 09:56 | PCM.PSN.6M ---
PSN 6 Minute Walk Test 6 Minute Walk Test 6 Minute Walk Test: 6 Minute Walk Test PSN:6-Minute Walk Test Start: 03/22/24 11:17 Freq: Status: Active Protocol: RESP.6MINW Document 03/22/24 11:00 AE (Rec: 03/22/24 11:22 AE [id number]) 6 Minute Walk Test Date Performed 03/22/24 Time Performed 11:00 Height 5 ft 8 in Weight: 152 lb Weight in Pounds 152.[address]: Daniel Assistive device used: None Pre-test Oxygen Delivery Method Room Air Pulse Ox (%) 96 Pulse Rate (60-100 beats/min) 73 Dyspnea Rosetta Scale (0-10) 0.5 Exertion Rosetta Scale (6-20) 6 1st minute Oxygen Delivery Method Room Air Pulse Ox (%) 94 Pulse Rate (60-100 beats/min) 94 2nd minute Oxygen Delivery Method Room Air Pulse Ox (%) 95 Pulse Rate (60-100 beats/min) 91 3rd minute Oxygen Delivery Method Room Air Pulse Ox (%) 94 Pulse Rate (60-100 beats/min) 91 4th minute Oxygen Delivery Method Room Air Pulse Ox (%) 96 Pulse Rate (60-100 beats/min) 95 5th minute Oxygen Delivery Method Room Air Pulse Ox (%) 94 Pulse Rate (60-100 beats/min) 92 6th minute Oxygen Delivery Method Room Air Pulse Ox (%) 96 Pulse Rate (60-100 beats/min) 93 Dyspnea Rosetta Scale (0-10) 0.5 Exertion Rosetta Scale (6-20) 10 Post-test Oxygen Delivery Method Room Air Pulse Ox (%) 97 Pulse Rate (60-100 beats/min) 77 Full Laps Walked 12 Partial Lap, Number of Tiles Walked 39 Total Distance Walked (ft) 747 Interpretation Interpretation: The patient ambulated 747 feet over the course of 6 minutes beginning on room air without assistive devices. Pretesting oxygen saturation was noted to be 96% on room air. With ambulation, the matt oxygen saturation was 94%. There was no significant exertional oxygen desaturation. Recommendations Recommendations: There is no indication for the use of supplemental oxygen at this time.
== END | disposition home or self-care (01) ==
LOC: PSN 10:56
PROVIDERS: PCP Family Medicine; Referring Provider Nurse Practitioner Acute Care; Visit Provider Nurse Practitioner Acute Care
DX: J44.9 Chronic obstructive pulmonary disease, unspecified (principal)
CPT/HCPCS: 94618

== ENCOUNTER → 2024-03-29 | Outpatient (CLI) | payer MEDICAID, SELFPAY | END | disposition home or self-care (01) | LOC: PSN 08:54 | PROVIDERS: PCP Family Medicine; Referring Provider Nurse Practitioner Acute Care; Visit Provider Nurse Practitioner Acute Care | DX: J44.9 Chronic obstructive pulmonary disease, unspecified (principal) | CPT/HCPCS: 94060; 94726; 94729 ==

== ENCOUNTER → 2024-03-31 | Outpatient (CLI) | payer MEDICAID, SELFPAY ==
--- NOTE | 2024-03-31 08:23 | BI_ITS ---
PROCEDURE: SCRN MAMM (CAD)W/MARISELA BILAT REASON FOR EXAM: F, Age 63 y/o, routine mammogram. No family history. Prior right ultrasound- guided breast biopsies. TECHNIQUE: Bilateral screening digital breast tomosynthesis with 2D and 3D images. Computer aided detection. COMPARISON: Prior exam(s) dating back to March 27, 2023.. FINDINGS: The breasts are heterogeneously dense which may obscure small masses. 2 tissue markers are seen in the upper lateral aspect of the right breast incomplete history of prior biopsies. Stable fat containing bilateral axillary lymph nodes. No suspicious masses, areas of developing architectural distortion, or suspicious calcifications. BI/SCRN MAMM (CAD)W/MARISELA BILAT IMPRESSION: BI-RADS 2: BENIGN. RECOMMEND ANNUAL MAMMOGRAPHIC SCREENING. Follow-up code: Routine Follow-up The patient will be notified of the results by letter. Reading Location: [place] [address]
== END | disposition home or self-care (01) ==
LOC: OPBI 07:59
PROVIDERS: PCP Family Medicine; Referring Provider Family Medicine; Visit Provider Family Medicine
DX: Z12.31 Encounter for screening mammogram for malignant neoplasm of breast (principal)
CPT/HCPCS: 77063; 77067

== ENCOUNTER → 2024-04-13 | Outpatient (CLI) | payer MEDICAID, SELFPAY | END | disposition home or self-care (01) | LOC: LABSPEC 10:32 | PROVIDERS: PCP Family Medicine; Referring Provider Nurse Practitioner Family; Visit Provider Nurse Practitioner Family | DX: J44.9 Chronic obstructive pulmonary disease, unspecified (principal) | CPT/HCPCS: 87070; 87077; 87186; 87205 ==

== ENCOUNTER → 2024-08-12 | Outpatient (CLI) | payer MEDICAID, SELFPAY ==
[2024-08-12 12:23] LABS: Absolute Lymphocyte Count 2.73 X10^3/uL (0.83-4.51); Absolute Neutrophil Count 8.9 X10^3/uL (2.0-7.7); Basophil# 0.08 X10^3/uL; Basophil% 0.6 % (0-1); Eosinophil# 0.11 X10^3/uL; Eosinophils% 0.8 % (0-5); Hematocrit 42.3 % (37-47); Lymphocyte # 2.73 X10^3/ul (0.83-4.51); Mean Corp Hgb Conc 33.1 g/dL (32-36); Mean Corpuscular Hgb 31.7 pg (27.0-32.0); Mean Corpuscular Volume 95.7 fL (81-99); Mean Platelet Vol. 10.3 fl (6.2-12.0); Monocyte# 1.19 X10^3/uL; Monocyte% 9.1 % (0-10); NRBC Flagged by Analyzer 0 % (0-5); Neutrophil # 8.85 X10^3/uL (2.7-7.7); Neutrophil % 68.1 % (47-70); Platelet Count 354 K/mm3 (150-450); RBC Distribution Width CV 13.5 % (11.6-14.6); RBC Distribution Width SD 47.4 fl (35.1-43.9); Red Blood Count 4.42 M/mm3 (4.2-5.4)
[2024-08-12 13:09] LABS: Hemoglobin A1c 5.3 % (<=5.6)
[2024-08-12 14:25] LABS: Cholesterol 152 mg/dL (<=200); High Density Lipoprotein 54 mg/dL; Low Density Lipoprotein Calc. 81 mg/dL; Thyroid Stim Hormone (TSH) 0.769 uIU/mL (0.300-4.200); Triglycerides 86 mg/dL; Very Low Density Lipoprotein 17 mg/dL (5-40); Vitamin D,25 Hydroxy 79.3 ng/mL (30-100); cholesterol:hdl ratio screen 2.84
[2024-08-12 15:12] LABS: ALB/GLOB Ratio 1.4 RATIO (0.9-2.4); AST(SGOT) 18 U/L (<=31); Alanine Aminotransfer ALT/SGPT 25 U/L (<=34); Albumin, Serum 4.3 g/dL (3.4-4.8); Alkaline Phosphatase 103 U/L (35-104); Anion Gap 12 (5-15); BUN 11 mg/dL (4-19); BUN/Creat Ratio 14.2 RATIO (10-20); Calcium,Total 9.6 mg/dL (7.6-11.0); Carbon Dioxide 25.9 mmol/L (21.0-32.0); Chloride 105 mmol/L (98-108); EST Glomerular Filtration Rate 84 (>60); Globulin 3.1 g/dL (2.2-4.2); Glucose 92 mg/dL (70-99); Potassium 3.9 mmol/L (3.3-5.1); Protein, Total 7.3 g/dL (5.9-8.4); Sodium Level 143 mmol/L (133-145)
== END | disposition home or self-care (01) ==
LOC: BFHLAB 09:24
PROVIDERS: PCP Family Medicine; Visit Provider Family Medicine
DX: I25.10 Atherosclerotic heart disease of native coronary artery without angina pectoris (principal); E88.01 Alpha-1-antitrypsin deficiency; E55.9 Vitamin D deficiency, unspecified; E03.8 Other specified hypothyroidism; Z79.899 Other long term (current) drug therapy
CPT/HCPCS: 36415; 80053; 80061; 82306; 83036; 84443; 85025

== ENCOUNTER → 2025-01-05 | Outpatient (CLI) | payer MEDICAID, SELFPAY ==
--- NOTE | 2025-01-05 08:04 | CT_ITS ---
PROCEDURE: LOW DOSE CT LUNG SCREENING 01/05/2025 REASON FOR EXAM: SMOKER TECHNIQUE: Procedure Code: [id number] Modality: CT Procedure: LOW DOSE CT LUNG SCREENING Coronal and Sagittal reconstruction series were provided. One or more dose reduction techniques were used (e.g., Automated exposure control, adjustment of the mA and/or kV according to patient size, use of iterative reconstruction technique). RADIATION DOSE SUMMARY: CTDlvol: 3 mGy DLP: 109 mGycm COMPARISON: December 29, 2023 FINDINGS: Pulmonary Nodules: 3 mm solid nodule left lower lobe image 118 is unchanged. 5 mm solid nodule posterior left lower lobe is unchanged on image 139. Hardware:None Lymph Nodes:None appear enlarged Heart and Vasculature:Heart is mildly enlarged. No pericardial effusion.Mild athero sclerosis of the aortic arch. Coronary Artery Calcifications: Present Lungs and Airways: Ground-glass opacity and subsegmental atelectasis at the right lower lobe. Scarring in the medial basal left lower lobe. Upper lobe predominant centrilobular emphysema. Scarring at the lung apices. Pleura:No pleural effusion or pneumothorax. Upper Abdomen:Unremarkable Bones:Decreased bone mineralization. Mild marginal endplate spurring lower thoracic spine CT/Low Dose CT Lung Screening IMPRESSION: 1. No acute abnormality. Emphysema is present. 2. Pulmonary nodules are unchanged. Coronary artery calcification (CAC) is present Lung-RADS Category: 2 BENIGN (BASED ON IMAGING FEATURES OR INDOLENT BEHAVIOR). RECOMMEND 12-MONTH SCREENING LDCT. Reading Location: [id number]
== END | disposition home or self-care (01) ==
LOC: CT 08:04
PROVIDERS: PCP Family Medicine; Referring Provider Nurse Practitioner Acute Care; Visit Provider Nurse Practitioner Acute Care
DX: F17.210 Nicotine dependence, cigarettes, uncomplicated (principal)
CPT/HCPCS: 71271